=== PATIENT | female | born 1950 | race Caucasian/White ===

== ENCOUNTER 2018-03-18 09:04 | Outpatient (CLI) | payer BC, SELFPAY ==
[2018-03-18 13:10] LABS: Absolute Basophil Count 0.06 k/cumm (0.0-0.2); Absolute Eosinophil Count 0.25 k/cumm (0.0-0.7); Absolute Lymphocyte Count 1.05 k/cumm (1.2-3.4); Absolute Monocyte Count 0.43 k/cumm (0.11-0.7); Absolute Neutrophil Count 3.64 k/cumm (1.2-6.7); Basophils % 1.1; Eosinophils % 4.6; HCT 40.1 % (36.0-46.0); HGB 13.5 g/dL (12.0-15.5); Lymphocytes % 19.3; Mean Corp. HGB Concentration 33.7 g/dL (32.0-36.0); Mean Corpuscular Hemoglobin 31.2 pg (27.0-33.0); Mean Corpuscular Volume 92.6 fL (80-95); Mean Platelet Volume 12.4 fL (8.0-11.0); Monocytes % 7.9; Neutrophils % 67.1; Platelet Count 220 x1000/uL (130-400); RBC 4.33 m/cumm (4.00-5.20); White Blood Cell Count 5.43 k/cumm (4.4-10.8)
[2018-03-18 14:02] LABS: ALT 26 U/L (12-78); AST 25 U/L (15-37); Albumin 3.8 g/dL (3.4-5.0); Alkaline Phosphatase 84 U/L (46-116); Anion Gap 11.4 mmol/L (3-11); BUN 24 mg/dL (7-18); Bilirubin, Total 0.4 mg/dL (0.2-1.0); CO2 21.6 mmol/L (21.0-32.0); CREATININE 1.29 mg/dL (0.55-1.02); Calcium 9.1 mg/dL (8.5-10.1); Chloride 106 mmol/L (98-107); Estimated GFR 41.48 (mL/min/1.73m2); Glucose 105 mg/dL (70-100); Magnesium 1.5 mg/dL (1.8-2.4); Potassium 4.5 mmol/L (3.5-5.1); Sodium 139 mmol/L (136-145); Vitamin B12 471 pg/mL (193-986)
== END 2018-03-18 09:24 ==
PROVIDERS: PCP Family Medicine; Visit Provider Family Medicine
DX: K50.90 Crohn's disease, unspecified, without complications (principal)
CPT/HCPCS: 36415; 80053; 82607; 83735; 85025

== ENCOUNTER 2018-09-30 10:20 | Outpatient (REF) | payer OTHER, SELFPAY ==
--- NOTE | 2018-09-30 10:00 | PAPFT_PTH ---
PATIENT: Gloria Coburn LOC: [facility] U#:[id number] AGE/SX: 67/F ROOM: RE09/30/[address]: LATRICE Abad : 1950 BED: DIS: 09/30/2018 SPEC #: [id number] RECD: 09/30/18 12:25 STATUS: SOMMER RETrevin #: [id number] GUNNER: 09/30/18 10:[address]: Atiya Frederick DEPT: [facility] Cytology RECD BY: Sharon Galicia ENTERED: 09/30/18 12:25 SP TYPE: PAPFT BRENNEN DR: Hetal Colby MD Tissues: 1 - CX/ENDOCX FOR PAP SMEARS Procedures: PAP THIN PREP/[facility] Screening HPV DNA PROBE Comments: [id number]
== END 2018-09-30 10:40 ==
LOC: LBN 10:20
PROVIDERS: PCP Family Medicine; Visit Provider Nurse Practitioner Family
DX: Z12.4 Encounter for screening for malignant neoplasm of cervix (principal); Z11.51 Encounter for screening for human papillomavirus (HPV)
CPT/HCPCS: 88142; 87624

== ENCOUNTER 2018-10-09 00:46 | Outpatient (CLI) | payer OTHER, SELFPAY ==
--- NOTE | 2018-10-09 17:30 | DI.MAMMO_ITS ---
SYMPTOM/DIAGNOSIS: SCREENING, Z12.31 MAMMOGRAMS: Mammograms were interpreted according to the usual protocol including computer analysis with CAD system, tomosynthesis and C view imaging. The breast tissue is of moderate radiodensity. There is no dominant mass or suspicious microcalcifications. There has been no significant interval change when compared with previous images. SUMMARY: No evidence of malignancy. Category 1. Yearly screening mammography is recommended. Breast density, Category B. SA ASSESSMENT OF FINDINGS: Negative. Category 1. Patient will receive a letter notifying them of these results. BI-RADS category B. There are scattered areas of fibroglandular density.
== END 2018-10-09 01:06 ==
PROVIDERS: PCP Family Medicine; Visit Provider Nurse Practitioner Family
DX: Z12.31 Encounter for screening mammogram for malignant neoplasm of breast (principal)
CPT/HCPCS: 77063; 77067

== ENCOUNTER 2020-01-12 02:13 | Outpatient (CLI) | payer OTHER, SELFPAY ==
--- NOTE | 2020-01-12 16:00 | DI.MAMMO_ITS ---
EXAM: MG MAMMO SCREENING CLINICAL HISTORY: screening TECHNIQUE: Bilateral full field digital CC and MLO mammographic images were obtained with 3D tomosyn thesis and utilizing computer aided detection (CAD). COMPARISON: Available for comparison. FINDINGS: Masses/Architectural Distortion: None seen. Microcalcifications: No suspicious pleomorphic-type are seen. Skin Thickening/Nipple Retraction: None. IMPRESSION: 1. No significant interval change with no specific features of malignancy noted. 2. Unless there is more urgent need, screening mammography is recommended, as per [employer] guidelines. BI-RADS Category 1 - Negative Breast Density - Category B - Scattered areas of fibroglandular density A negative radiographic report should not delay biopsy if a dominant or clinically suspicious mass is present. Up to ten percent of cancers are not identified on mammography. A negative report may reinforce clinical impression. Adenosis and dense breasts may obscure an underlying neoplasm. False positive reports average 6 to 10%. Patient will receive a letter notifying them of these results.
== END 2020-01-12 02:33 ==
PROVIDERS: PCP Family Medicine; Visit Provider Nurse Practitioner Family
DX: Z12.31 Encounter for screening mammogram for malignant neoplasm of breast (principal); R92.2 Inconclusive mammogram
CPT/HCPCS: 77063; 77067

== ENCOUNTER 2020-05-06 01:51 | Outpatient (CLI) | payer OTHER, SELFPAY ==
[2020-05-06 14:09] LABS: Anion Gap 8.2 mmol/L (3-11); BUN 20 mg/dL (7-18); CO2 24.8 mmol/L (21.0-32.0); CREATININE 1.32 mg/dL (0.55-1.02); Chloride 104 mmol/L (98-107); Estimated GFR 40.14 (mL/min/1.73m2); Glucose 88 mg/dL (74-106); Magnesium 1.8 mg/dL (1.8-2.4); Potassium 4.1 mmol/L (3.5-5.1); Sodium 137 mmol/L (136-145); Vitamin B12 988 pg/mL (193-986)
== END 2020-05-06 02:11 ==
PROVIDERS: PCP Family Medicine; Visit Provider Family Medicine
DX: N18.9 Chronic kidney disease, unspecified (principal); E83.42 Hypomagnesemia; E53.8 Deficiency of other specified B group vitamins; M81.0 Age-related osteoporosis without current pathological fracture
CPT/HCPCS: 36415; 80048; 82306; 82607; 83735

== ENCOUNTER 2021-01-14 04:09 | Outpatient (CLI) | payer OTHER, SELFPAY ==
--- NOTE | 2021-01-14 15:47 | DI.MAMMO_ITS ---
Exam(s) MAMMO SCREENING EXAM: MAMMO SCREENING CLINICAL HISTORY: screening TECHNIQUE: Mammograms were interpreted according to the usual protocol including computer analysis w [employer] CAD system, tomosynthesis and C-view imaging. COMPARISON: 2010 through 2019 FINDINGS: The breasts are composed of scattered fibroglandular densities, Breast Density category B. No suspicious masses or suspicious microcalcifications are seen. No skin thickening or abnormal axillary lymph nodes are seen. There has been no significant change from prior exams. IMPRESSION: BI-RADS Category 1, Negative mammogram Yearly screening mammography is recommended. Breast Density - Category B, scattered fibroglandular densities. A negative radiographic report should not delay biopsy if a dominant or clinically suspicious mass is present. Up to ten percent of cancers are not identified on mammography. A negative report may reinforce clinical impression. Adenosis and dense breasts may obscure an underlying neoplasm. False positive reports average 6 to 10%. Patient will receive a letter notifying them of these results.
== END 2021-01-14 04:29 ==
PROVIDERS: PCP Family Medicine; Visit Provider Nurse Practitioner Family
DX: Z12.31 Encounter for screening mammogram for malignant neoplasm of breast (principal)
CPT/HCPCS: 77063; 77067

== ENCOUNTER 2021-08-08 12:06 | Outpatient (CLI) | payer MEDICARE, SELFPAY ==
--- NOTE | 2021-08-08 12:15 | RT.EKG_ITS ---
APPROVED REPORT Exam: Resting ECG Reason for Exam: Medicare [place] exam Patient Location: O HR:65 bpm ECG Measurements Heart Rate 65 AXIS RI 143 P 59 QRSd 80 QRS 36 QT 411 T 57 QTc 427 Conclusion Sinus rhythm...normal P axis, V-rate 60- 99
== END 2021-08-08 12:07 | disposition home or self-care (01) ==
PROVIDERS: PCP Family Medicine; Visit Provider Family Medicine
DX: D51.0 Vitamin B12 deficiency anemia due to intrinsic factor deficiency (principal); E55.9 Vitamin D deficiency, unspecified; N18.31 Chronic kidney disease, stage 3a; Z00.00 Encounter for general adult medical examination without abnormal findings; Z11.59 Encounter for screening for other viral diseases
CPT/HCPCS: 93010

== ENCOUNTER 2021-09-20 01:59 | Outpatient (CLI) | payer MEDICARE, SELFPAY ==
[2021-09-20 07:58] LABS: HCT 41.8 % (36.0-46.0); HGB 13.3 g/dL (11.2-15.7); MCH 30.4 pg (27.0-33.0); MCHC 31.8 % (32.0-36.0); MCV 96 fL (80-95); MPV 10.7 fL (8.0-11.0); Platelet Count 271 10^3/uL (130-400); RBC 4.37 10^6/uL (3.93-5.22); RDW 12.4 % (11.7-14.6); RDW-SD 43.8 fL; WBC 6.25 10^3/uL (4.4-10.8)
[2021-09-20 10:09] LABS: ALT 35 U/L (14-59); AST 23 U/L (15-37); Albumin 3.7 g/dL (3.4-5.0); Alkaline Phosphatase 78 U/L (46-116); Anion Gap 11.6 mmol/L (3-11); BUN 23 mg/dL (7-18); Bilirubin, Total 0.5 mg/dL (0.2-1.0); CO2 23.4 mmol/L (21.0-32.0); CREATININE 1.4 mg/dL (0.55-1.02); Calcium 9.4 mg/dL (8.5-10.1); Calculated LDL 89 mg/dL (<100); Chloride 107 mmol/L (98-107); Cholesterol 175 mg/dL (<200); Estimated GFR 37.39 (mL/min/1.73m2); Glucose 106 mg/dL (74-106); HDL Cholesterol 50 mg/dL (40-60); Potassium 4.3 mmol/L (3.5-5.1); Sodium 142 mmol/L (136-145); TSH (W/Ref FT4) 8.24 uIU/mL (0.36-3.74); Total Protein 7.1 g/dL (6.4-8.2); Triglyceride 181 mg/dL (<150); Vitamin B12 950 pg/mL (193-986)
[2021-09-20 10:30] LABS: FREE T4 0.84 ng/dL (0.76-1.46)
[2021-09-21 11:04] LABS: Hepatitis C Ab w Rflx HCV PCR Negative (Negative)
[2021-09-21 11:25] LABS: HIV-1/2 Ag & Ab Screen Negative (Negative)
[2021-09-22 05:17] LABS: Vitamin D 25 Total 31.4 ng/mL (30-100)
== END 2021-09-20 02:00 | disposition home or self-care (01) ==
LOC: LBO 01:59
PROVIDERS: PCP Nurse Practitioner Family; Visit Provider Family Medicine
DX: D51.0 Vitamin B12 deficiency anemia due to intrinsic factor deficiency (principal); E55.9 Vitamin D deficiency, unspecified; N18.31 Chronic kidney disease, stage 3a; Z11.59 Encounter for screening for other viral diseases; I10 Essential (primary) hypertension; R79.89 Other specified abnormal findings of blood chemistry; Z11.4 Encounter for screening for human immunodeficiency virus [HIV]
CPT/HCPCS: 36415; 80053; 80061; 82306; 85027; 86803; 87389; 82607; 84439; 84443

== ENCOUNTER 2021-10-08 05:27 | Outpatient (CLI) | payer MEDICARE, SELFPAY | END 2021-10-08 05:28 | disposition home or self-care (01) | LOC: DI.CM 05:28 | PROVIDERS: PCP Nurse Practitioner Family; Visit Provider Family Medicine ==

== ENCOUNTER 2021-11-29 02:09 | Outpatient (CLI) | payer MEDICARE, SELFPAY ==
[2021-11-29 08:56] LABS: Anion Gap 10.5 mmol/L (3-11); BUN 21 mg/dL (7-18); CO2 22.5 mmol/L (21.0-32.0); CREATININE 1.4 mg/dL (0.55-1.02); Calcium 9.3 mg/dL (8.5-10.1); Chloride 108 mmol/L (98-107); Estimated GFR 37.28 (mL/min/1.73m2); Glucose 99 mg/dL (74-106); Sodium 141 mmol/L (136-145); TSH 3.51 uIU/mL (0.36-3.74)
[2021-11-30 11:05] LABS: Hepatitis C Ab w Rflx HCV PCR Negative (Negative)
[2021-12-01 05:20] LABS: Vitamin D 25 Total 23.2 ng/mL (30-100)
== END 2021-11-29 02:10 | disposition home or self-care (01) ==
LOC: LBO 02:09
PROVIDERS: Nurse Practitioner; PCP Nurse Practitioner Family; Visit Provider Family Medicine
DX: M81.0 Age-related osteoporosis without current pathological fracture (principal)
CPT/HCPCS: 36415; 80048; 82306; 86803; 84439; 84443

== ENCOUNTER → 2022-02-07 01:52 | Outpatient (CLI) | payer MEDICARE, SELFPAY ==
--- NOTE | 2022-02-07 12:15 | DI.MAMMO_ITS ---
Exam(s) MAMMO SCREENING EXAM: MAMMO SCREENING CLINICAL HISTORY: screening TECHNIQUE: Bilateral full field digital CC and MLO mammographic images were obtained with 3D tomosyn thesis and utilizing computer aided detection (CAD). COMPARISON: Available for comparison. FINDINGS: Masses/Architectural Distortion: None seen. Microcalcifications: No suspicious pleomorphic-type are seen. Skin Thickening/Nipple Retraction: None. IMPRESSION: 1. No significant interval change with no specific features of malignancy noted. 2. Unless there is more urgent need, screening mammography is recommended, as per [employer] guidelines. BI-RADS Category 1 - Negative Breast Density - Category B - Scattered areas of fibroglandular density Breast density category C or D implies that the patient has dense breast tissue. Dense breast tissue is very common and is not abnormal but dense breast tissue can make it harder to find cancer on a ma mmogram. Also, dense breast tissue may increase their breast cancer risk. This information about the result of the mammogram report was provided to the patient to raise their awareness. Use this report when you speak with the patient about their risks for breast cancer, which includes their family hist ory. At that time, you may recommend for more screening tests (Ultrasound or MRI) as they might be us eful based on their risk. A negative radiographic report should not delay biopsy if a dominant or clinically suspicious mass is present. Up to ten percent of cancers are not identified on mammography. A negative report may reinforce clinical impression. Adenosis and dense breasts may obscure an underlying neoplasm. False positive reports average 6 to 10%. Patient will receive a letter notifying them of these results.
== END ==
PROVIDERS: PCP Nurse Practitioner Family; Visit Provider Nurse Practitioner Women's Health
DX: Z12.31 Encounter for screening mammogram for malignant neoplasm of breast (principal)
CPT/HCPCS: 77063; 77067

== ENCOUNTER → 2022-02-21 02:18 | Outpatient (CLI) | payer MEDICARE, SELFPAY ==
--- NOTE | 2022-02-21 06:30 | DI.US_ITS ---
Exam(s) US PELVIS TRANSVAGINAL EXAM: US PELVIS TRANSVAGINAL CLINICAL HISTORY: Postmenopausal bleeding,n95.0. TECHNIQUE: Transabdominal and transvaginal pelvic ultrasound was performed using standard protocol. COMPARISON: US RENAL ULTRASOUND(P) {[id number]} from 09/09/2015 FINDINGS: UTERUS: Position: Retroverted. Size: 5.6 long by 2.7 AP by 2.7 transverse cm Endometrium: Up to 1.1 cm. The endometrial stripe is heterogeneous and thickened. There is fluid see n within the endometrial canal and within the cervical canal. Myometrium: Unremarkable. Cervix: Fluid seen within the cervical canal. OVARIES: The ovaries were not seen transabdominally or transvaginally. No adnexal mass is seen sonog raphically. CUL-DE-SAC: Free fluid: None. Other: None. IMPRESSION: 1. Heterogeneous thickened endometrial stripe up to 1.1 cm. Differential considerations include endo metrial hyperplasia or neoplasm. Gynecologic consult is recommended. 2. Fluid seen within the endometrial canal and cervical canal. 3. The ovaries were not visualized transabdominally or transvaginally. No adnexal mass is seen sonog raphically. DATA REPOSITORY:
== END ==
PROVIDERS: PCP Nurse Practitioner Family; Visit Provider Nurse Practitioner Women's Health
DX: N95.0 Postmenopausal bleeding (principal); R93.89 Abnormal findings on diagnostic imaging of other specified body structures
CPT/HCPCS: 76830; 76856

== ENCOUNTER 2022-02-21 02:50 | Outpatient (CLI) | payer MEDICARE, SELFPAY ==
[2022-02-21 09:03] LABS: Anion Gap 10.4 mmol/L (3-11); BUN 25 mg/dL (7-18); CO2 21.6 mmol/L (21.0-32.0); CREATININE 1.2 mg/dL (0.55-1.02); Calcium 9.2 mg/dL (8.5-10.1); Chloride 102 mmol/L (98-107); Glucose 103 mg/dL (74-106); Magnesium 1.6 mg/dL (1.8-2.4); Sodium 134 mmol/L (136-145)
[2022-02-21 09:20] LABS: PHOSPHORUS 2.8 mg/dL (2.6-4.7)
[2022-02-23 05:54] LABS: Vitamin D 25 Total 36.1 ng/mL (30-100)
== END 2022-02-21 02:51 | disposition home or self-care (01) ==
LOC: LBO 02:50
PROVIDERS: PCP Nurse Practitioner Family; Visit Provider Nurse Practitioner
DX: E55.9 Vitamin D deficiency, unspecified (principal); M81.0 Age-related osteoporosis without current pathological fracture; N28.9 Disorder of kidney and ureter, unspecified
CPT/HCPCS: 36415; 80048; 82306; 83735; 84100

== ENCOUNTER 2022-02-23 15:26 | Outpatient (REF) | payer MEDICARE, SELFPAY ==
--- NOTE | 2022-02-23 14:20 | ENDOMET_PTH ---
PATIENT: Gloria Coburn LOC: [facility] U#:[id number] AGE/SX: 71/F ROOM: RE02/23/[address]: Chey Edwards MD : 1950 BED: DIS: 02/23/2022 SPEC #: [id number] RECD: 02/23/22 17:33 STATUS: SOMMER REQ #: [id number] GUNNER: 02/23/22 14:[address]: Chey Edwards DEPT: Surgical Specimen RECD BY: Jesi Hamilton ENTERED: 02/23/22 17:34 SP TYPE: Endomet OTHR DR: Perry Montague, YOLIS Tissues: 1 - ENDOMETRIUM BX/TIERA Procedures: GROSS AND MICRO LEVEL 4 Comments: [id number]
== END 2022-02-23 15:27 | disposition home or self-care (01) ==
LOC: LBN 15:26
PROVIDERS: PCP Nurse Practitioner Family; Visit Provider Obstetrics & Gynecology
DX: N84.0 Polyp of corpus uteri (principal)
CPT/HCPCS: 88305

== ENCOUNTER 2022-10-17 14:15 | Outpatient (CLI) | payer MEDICARE, SELFPAY ==
--- NOTE | 2022-10-17 13:15 | DI.RAD_ITS ---
Exam(s) XR ABDOMEN FLAT UPRIGHT EXAM: 2D digital imaging was performed. CLINICAL HISTORY: hx sbo, now ? obstruction, ileostomy in place, Z93.2, K56.889. COMPARISON: CR ABD FLAT UPRIGHT PA CHEST from 06/02/2015 TECHNIQUE: Supine and upright views of the abdomen was performed. Three images were obtained. FINDINGS: LUNG BASES: Clear. BOWEL GAS PATTERN: Nondistended. FREE AIR: None. CALCIFICATIONS: No radiopaque calcifications. OSSEOUS STRUCTURES: Normal for age. OTHER FINDINGS: There are surgical clips in the right upper quadrant in the right pelvis again seen. IMPRESSION: No evidence of an acute abdomen. DATA REPOSITORY: RADIATION DOSE DELIVERED:
== END 2022-10-17 14:35 ==
LOC: DI 14:15
PROVIDERS: PCP Nurse Practitioner Family; Visit Provider Family Medicine
DX: K56.609 Unspecified intestinal obstruction, unspecified as to partial versus complete obstruction (principal); Z93.2 Ileostomy status
CPT/HCPCS: 74019

== ENCOUNTER 2022-10-17 21:49 | Inpatient (IN) | payer MEDICARE, SELFPAY ==
[2022-10-17 21:51] VITALS: BP 137/55; PULSE 71; RESP 19; TEMP 37; O2SAT 98
--- NOTE | 2022-10-17 22:00 | DI.CT_ITS ---
Exam(s) CT ABDOMEN PELVIS W EXAM: CT ABDOMEN PELVIS W CLINICAL HISTORY: pain/ eval sbo TECHNIQUE: Imaging Protocol: Axial computed tomography images with coronal and sagittal reformatted images were created and reviewed CONTRAST MATERIAL: Intravenous: Omnipaque 350 Contrast volume:100 mL Oral: No COMPARISON: CT RENAL COLIC WO CONTRAST from 06/19/2014 FINDINGS: ABDOMEN: Lung Bases: Mild dependent atelectasis. There is a 4 mm nodule in the periphery of the left lower lo be. Liver: Normal density. No measurable mass. Portal, Superior Mesenteric, and Splenic Veins: Unremarkable. Gallbladder and Biliary Tract: Status post cholecystectomy. No significant biliary ductal dilatation . Pancreas: Normal density, no abnormal calcifications or inflammatory process. Spleen: Normal. Adrenals: No masses seen. Kidneys: Normal size, contour and axis. No radiodense stones or obstructive uropathy. There are simpl e cysts seen in the kidneys bilaterally. No follow-up is recommended. Abdominal Aorta: Abdominal portion non-dilated. Atherosclerosis is present. Bowel: There has been a prior colectomy with a right lower quadrant ostomy in place. There are mildl y dilated air and fluid-filled loops of small bowel with a transition seen in the upper pelvis. At t he point of transition, there is fecalization of the small bowel contents. Peritoneal Cavity: No ascites, collection or mesenteric inflammatory response. No free air. Lymph Nodes: Within normal limits. Bones: Within normal limits for the patient's age. Soft Tissues: Unremarkable. PELVIS: Bladder: Symmetric distention, no gross wall thickening. Reproductive Organs: Unremarkable as visualized. Lymph Nodes: Within normal limits. Bones: Within normal limits for the patient's age. IMPRESSION: 1. Mildly dilated loops of small bowel with a transition in the upper pelvis. There is fecalization of the small bowel contents at the transition point. Findings are is suggestive of a small-bowel obs truction. 2. 4 mm nodule in the lateral aspect of the left lower lobe. In the patient's of low risk, optional CT scan in 12 months may be obtained. In high risk patients, (history of smoking or other risk facto rs), a scan in 12 months should be obtained. Unexpected findings RADIATION DOSE DELIVERED: 770.79mGy.cm Total DLP DATA REPOSITORY: All CT scans at this facility are submitted to the National Radiology Data Registry (NRDR) Dose Index Registry (DIR) with the [employer] (ACR). RADIATION OPTIMIZATION: All CT scans at this facility use at least one of these dose optimization te chniques: automated exposure control; mA and/or kV adjustment per patient size (includes targeted exa ms where dose is matched to clinical indication); or iterative reconstruction.
--- NOTE | 2022-10-17 22:06 | W.ED.GENAD ---
Discharge Plan Disposition Patient Disposition: Admit to [facility] Condition: Stable Discharge Details Clinical Impression: SBO (small bowel obstruction) Admit Date/Time: 10/18/22 00:43 Admit Provider: Dante Ybarra Attending Provider: Dante Ybarra Primary Care Provider: Perry Montague ED Provider: Philip Berry Discharge Data Discharge Date/Time-TO BE ENTERED AT DEPARTURE: 10/18/22 01:29 Medical Decision Making 72 year old female with prior ileostomy secondary to Crohn's, found to have SBO. vomiting last night, none today so deferred NGT. Pt says she has had this before, resolved without intervention. Spoke to surgery, will admit, IVF and NPO, eval in am. HPI General Date/Time Provider Initiated Documentation: 10/17/22 21:57. HPI Narrative: 72 year old female presents to the ED with c/o decreased output from her ileostomy and some abd pain that started last night. She says that the pain was pretty severe initially, mostly epigastric, with some nausea and couple bouts of vomiting. Today, her pain is less, and nausea has been coming and going, but ok currently, but still decreased out-put. She has had some decreased po today as well. She called her doctor, ordered her xrays and says they were read as normal. Related Data Home Medications Medication Instructions Recorded Confirmed omeprazole 20 mg tablet,delayed 20 mg PO DAILY PRN #30 tab-caps 09/17/17 10/17/22 release acetaminophen 500 mg capsule 500 - 1,000 mg PO Q6H PRN 03/18/18 10/17/22 biotin 1 mg capsule 1 mg PO DAILY 03/18/18 10/17/22 cholecalciferol (vitamin D3) 25 1,000 unit PO DAILY 02/25/19 10/17/22 mcg (1,000 unit) capsule cyanocobalamin (vitamin B-12) 1,000 mcg PO DAILY #90 tabs 07/22/19 10/17/22 1,000 mcg tablet hydroxychloroquine 200 mg tablet 200 mg PO DAILY 07/22/19 10/17/22 magnesium oxide 400 mg (241.3 mg 400 mg PO DAILY #90 tab-caps 11/21/19 10/17/22 magnesium) tablet levothyroxine 50 mcg tablet 50 mcg PO DAILY #90 tabs 10/16/22 10/17/22 Previous Rx's Medication Instructions Recorded cyanocobalamin (vitamin B-12) 1,000 mcg PO DAILY #90 tabs 07/22/19 1,000 mcg tablet levothyroxine 50 mcg tablet 50 mcg PO DAILY #90 tabs 10/16/22 Allergies Allergy/AdvReac Type Severity Reaction Status Date / Time prochlorperazine edisylate Allergy Severe Anaphylaxsi Verified 10/17/22 22:06 [From Compazine] s Sulfa (Sulfonamide Allergy Intermediate Ankle Verified 10/17/22 22:06 Antibiotics) Swelling General Stated Complaint: Abd Prob VIVI: 3 Review of Systems Narrative: CONST: no fever or chills HEENT: no sore throat SKIN: no rashes PULM: no sob, no cough CARD: no cp, no palpitations ABD: +abd pain EXTR: no swelling NEURO: No focal weakness PFSH All Active Problems (Updated 10/18/22 @ 00:39 by Philip Berry MD) SBO (small bowel obstruction) (Acute) Postmenopausal Bleeding (Acute) Osteoporosis (Chronic) 09/2021-DEXA scan with [facility], 1 out of 3 sites positive at spine, followed by rheumatology [facility]?-treated with Reclast Hypothyroid (Chronic) 09/2021, Vitamin D deficiency (Acute) Chronic kidney disease, stage 3a (Acute) Urology [facility] Sensorineural hearing loss, bilateral (Acute) Cervical intraepithelial neoplasia grade III with severe dysplasia (Acute 05/14/80) Proteinuria (Acute 09/07/15) Polyarthralgia (Acute) [place] [facility] [place]; inflammatory osteoarthritis/Hydrochloroquine started /eye exam yearly/ do Dexa scan Pernicious anemia (Chronic) Microscopic hematuria (Acute 02/11/14) Abnormal urinary cytology 01-25/ Dysphagia (Acute 11/26/13) gastroscopy 11-01-2103 : eosinophilic esophagitis or severe reflux esophagitis/small stricture in distal oesophagus Dr Briseno 2016: peptic duodenitis 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) GERD (gastroesophageal reflux disease) (Chronic) Crohns disease (Chronic) Medical History (Updated 10/18/22 @ 00:39 by Philip Berry MD) Anemia Dx 2012 Cervical intraepithelial neoplasia grade III with severe dysplasia 1980 Crohn's disease 1980 Kidney stone ?2004 passed Proctitis Small bowel obstruction 2009, 2010 Surgical History (Updated 08/08/21 @ 11:47 by Anthony Ramirez MD) Biopsy, Cold knife [facility] 1980 Cholecystectomy 1980 Colectomy complete colectomy Ileostomy 1980 Family History Mother , age 86 Diabetes Essential hypertension Heart disease Hyperlipidemia Stroke Colon cancer Father , age 91 Stroke Skin cancer Brother , age 26 Depression Alcohol abuse Substance abuse Maternal Grandfather No problems noted. Paternal Grandfather Stroke Maternal Grandmother No problems noted. Paternal Grandmother Stroke Brother Diabetes PRE Brother Hyperlipidemia Hypertension Brother Essential hypertension Heart disease Hyperlipidemia Son No problems noted. Daughter No problems noted. Social History (Updated 09/12/22 @ 17:31 by Sophie Moore) Smoking/Tobacco Use Status: Never Second Hand Exposure: No Smoking risk assessment performed?: Yes Alcohol Intake: current Alcohol Intake frequency: a few times a month Alcohol type: wine and hard liquor Drug use: Never Substance use type: does not use Caregiver/Support person: No Household members: spouse Housing: house Communication Needs: None Do you need help understanding health information?: Never Pets and animals: Yes Pets and animals: cat(s) Sexually active: Yes Do you think of yourself as: straight/heterosexual Current gender identity: female What is your relationship status?: How often do you talk on the phone with friends or family?: three or more times per week How often do you get together with friends or relatives?: once per week How often do you attend mosque or islam services?: decline to answer Do you belong to any clubs or organized social groups?: yes Panel score (0-1 are the most socially isolated patients): 3 What type of physical activity do you participate in: walking and bicycling Duration: 15-30 minutes/day Frequency: 3-4 times per week Karol/Roman Catholic: Latter-Day Special karol needs: No Seatbelt use: always Helmet use: Yes Helmet use: sometimes Drive intox or ride w/intox tow bar driver: No Do you feel safe at home: Yes Do you feel safe in your relationship?: Yes Female Reproductive History Menstrual Menopause type: natural History History 0 Para Hx # Term Pregnancies Multiple births Hx # Pregnancies Ectopic pregnancies AB induced Hx Number of Living Children AB spontaneous Exam Narrative Exam Narrative: Const: well appearing, no acute distress HEENT: normocephalic, atraumatic; MMM Lungs: CTA, no wheezing or rales Heart: RRR Abd: soft, ileostomy in lower abd, small amount yellow brown material. +BS, mild diffuse lower abd tenderness, no rebound or guarding. Ext: well perfused Neuro: non-focal Skin: no rashes Course Reevaluation(s) Initial Evaluation: 11:00pm, pt resting comfortably, no acute issues on labs. Will continue to monitor, waiting for Rad read of CT. Reevaluation: 36 - spoke to surgery, discussed all pertinent aspects of case, will accept on service for further eval and tx, NPO, IVF, will eval in am. Updated pt. Consultations Consultation #1: surgery. Vital Signs Vital signs: Vital Signs Temperature 37.0 C 10/17/22 21:51 Pulse 71 10/17/22 21:51 Respiratory Rate 19 10/17/22 21:51 Blood Pressure 137/55 L 10/17/22 21:51 Pulse Oximetry 98 10/17/22 21:51 Temperature 37.0 C 10/17/22 21:51 Temperature Source Temporal Artery Scan 10/17/22 21:51 Pulse 71 10/17/22 21:51 Respiratory Rate 19 10/17/22 21:51 Respiratory Effort Normal 10/17/22 21:55 Blood Pressure 137/55 L 10/17/22 21:51 Blood Pressure Position Sitting 10/17/22 21:51 Pulse Oximetry 98 10/17/22 21:51 Oxygen Delivery Method Room Air 10/17/22 21:51 Oxygen Flow Rate 0 10/17/22 21:51 Pain Level 0 10/17/22 21:51
[2022-10-17 22:18] LABS: Lactate 1.3 mmol/L (0.6-1.4)
[2022-10-17 22:20] LABS: HCT 42.3 % (36.0-46.0); HGB 14.1 g/dL (11.2-15.7); MCH 30.9 pg (27.0-33.0); MCHC 33.3 % (32.0-36.0); MCV 93 fL (80-95); MPV 10.6 fL (8.0-11.0); Platelet Count 247 10^3/uL (130-400); RBC 4.57 10^6/uL (3.93-5.22); WBC 10.04 10^3/uL (4.4-10.8)
[2022-10-17] MEDS: Normal Saline 1,000 ML 1000 ML IV (22:22)
[2022-10-17 22:36] LABS: ALT 26 U/L (14-59); AST 24 U/L (15-37); Albumin 3.8 g/dL (3.4-5.0); Alkaline Phosphatase 72 U/L (46-116); Anion Gap 9.4 mmol/L (3-11); BUN 17 mg/dL (7-18); Bilirubin, Total 0.9 mg/dL (0.2-1.0); CO2 27.6 mmol/L (21.0-32.0); CREATININE 1.4 mg/dL (0.55-1.02); Calcium 9.9 mg/dL (8.5-10.1); Chloride 102 mmol/L (98-107); Estimated GFR 40.47 (mL/min/1.73m2); Glucose 116 mg/dL (74-106); Lipase 36 U/L (16-77); Potassium 3.5 mmol/L (3.5-5.1); Sodium 139 mmol/L (136-145); Total Protein 7.6 g/dL (6.4-8.2)
[2022-10-17] MEDS: Omnipaque 350 MG/ML 100 ML BTL IJ (22:42)
[2022-10-17] MEDS: Normal Saline - Diluent 50 ML VIAL IJ (22:42)
[2022-10-17] MEDS: Normal Saline Flush 10 ML SYR IVP (22:43)
--- NOTE | 2022-10-17 23:49 | DI.VRAD_ITS ---
PROCEDURE INFORMATION: Exam: CT Abdomen And Pelvis With Contrast Exam date and time: 10/17/2022 10:50 PM Age: 72 years old Clinical indication: Abdominal pain; Generalized; Prior surgery; Surgery date: 6+ months; Surgery type: Gallbladder removal, choleostomy TECHNIQUE: Imaging protocol: Computed tomography of the abdomen and pelvis with contrast. Contrast material: OMNIPAQUE 350; Contrast volume: 100 ml; Contrast route: INTRAVENOUS (IV); COMPARISON: CR XR ABDOMEN FLAT UPRIGHT 10/17/2022 1:56 PM FINDINGS: Lungs: Minimal bibasilar atelectasis or scarring. Diaphragm: Small-sized hiatal hernia. Liver: Mild hepatomegaly. Gallbladder and bile ducts: Gallbladder surgically absent. Pancreas: Normal. Spleen: Normal. Adrenal glands: Normal. No mass. Kidneys and ureters: Bilateral simple renal cysts, for which no further evaluation necessary. Stomach and bowel: Few loops of mildly dilated, gas and fluid-filled mid and distal small bowel, with focal transition to normal caliber small bowel in the upper pelvis (series 4, image 60). Fecalization of small bowel contents proximal to the point of transition. Changes of prior colectomy, with right lower quadrant ileostomy. Appendix: No evidence of appendicitis. Intraperitoneal space: Minimally increased attenuation of the mesenteric root fat, likely incidental. Vasculature: Atherosclerotic disease of the abdominal aorta and iliac arteries. Phleboliths within the pelvis. Lymph nodes: Unremarkable. No enlarged lymph nodes. Urinary bladder: Unremarkable as visualized. Reproductive: Unremarkable as visualized. Bones/joints: No acute abnormality. Soft tissues: Normal. IMPRESSION: Few loops of mildly dilated, gas and fluid-filled mid and distal small bowel, with focal transition to normal caliber small bowel in the upper pelvis (series 4, image 60). Fecalization of small bowel contents proximal to the point of transition. Findings compatible with small bowel obstruction. Dictated and Authenticated by: Dante Chase MD. Ordering:MARE Palacios MD
[2022-10-18] MEDS: Ondansetron 4 MG/2 ML VIAL IVP ×3 (00:19→19:56)
--- NOTE | 2022-10-18 00:37 | SCONE_ITS ---
Date of service: 10/18/22 Time of Service: 00:45 Assessment and Plan Assessment and plan (1) SBO (small bowel obstruction): Status: Acute Assessment and plan: 72-year-old woman with a small bowel obstruction radiographically as well as clinically (no ostomy output with distention and nausea and vomiting). She is hemodynamically stable. Clinically, her symptoms seem to be resolving per her account. She is not having any more abdominal pain and does not have any nausea and has not vomited for many hours now. The only thing that remains concerning is that her ostomy still has not started having any output. I discussed with her the role for NG tube placement and I do recommend decompression. However, considering she is feeling better I did offer her the option of continued observation which is what she would like to do. She has never had an NG tube before. She does not want to have one placed now if she is getting better and she thinks that she has. We agreed that if she vomits or the pain starts back up, then an NG tube will need to be placed. I have instructed the nursing staff about this as needed order/plan. Lab work is grossly unremarkable. She has CKD stage III at baseline. Her creatinine at 1.4 today is her baseline creatinine. There is no clinical or laboratory evidence that she is dehydrated from her obstruction. She reports that she has been urinating adequately. Overall plan: #Patient #N.p.o. - gentle IV fluid #Serial abdominal exams #18 Gauge NG tube if the patient vomits or abdominal pain returns or if the ostomy does not start putting on the next 24-36 hours. #Gastrografin oral challenge #Repeat lab work in the morning History of Present Illness Narrative: The patient is a 72-year-old woman who presented to the ED after couple of days of no ostomy output and abdominal discomfort that is cramping as well as some nausea and vomiting. She has a history of total colectomy with end ileostomy done for Crohn's disease about 40-50 years ago. Her Crohn's disease has been in remission ever since. She is not on maintenance medications. She has had 1 episode of small bowel obstruction in the past and it was self?limited and went away after couple of days. She did not have an NG tube for this. She came to the emergency department after discussing her symptoms and scenario with relatives who are in the medical field. At the time she came to the e mergency department, her cramping abdominal discomfort had subsided. A CT scan was done which showed evidence of small bowel obstruction. Mid-? loops of bowel are fecalized with a transition point and bowel leading away from it is decompressed. These reasons the patient was admitted for observation. Admission, she had she denied nausea and had not vomited for many hours. These reasons no NG tube was placed. However, she still did not have any bowel function from her ostomy. [facility] All Active Problems (Updated 10/18/22 @ 00:39 by Philip Berry MD) SBO (small bowel obstruction) (Acute) Postmenopausal Bleeding (Acute) Osteoporosis (Chronic) 09/2021-[facility]A scan with [facility], 1 out of 3 sites positive at spine, followed by rheumatology [facility]?-treated with Reclast Hypothyroid (Chronic) 09/2021, Vitamin D deficiency (Acute) Chronic kidney disease, stage 3a (Acute) Urology [facility] Sensorineural hearing loss, bilateral (Acute) Cervical intraepithelial neoplasia grade III with severe dysplasia (Acute 05/14/80) Proteinuria (Acute 09/07/15) Polyarthralgia (Acute) 2017 [facility] Rheumatology; inflammatory osteoarthritis/Hydrochloroquine started /eye exam yearly/ do Dexa scan Pernicious anemia (Chronic) Microscopic hematuria (Acute 02/11/14) Abnormal urinary cytology 01-25/ Dysphagia (Acute 11/26/13) gastroscopy 11-01-2103 : eosinophilic esophagitis or severe reflux esophagitis/small stricture in distal oesophagus Dr Briseno 2016: peptic duodenitis 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) GERD (gastroesophageal reflux disease) (Chronic) Crohns disease (Chronic) Medical History (Updated 10/18/22 @ 00:39 by Philip Berry MD) Anemia Dx 2012 Cervical intraepithelial neoplasia grade III with severe dysplasia 1980 Crohn's disease 1980 Kidney stone ?2004 passed Proctitis Small bowel obstruction 2009, 2010 Surgical History (Updated 08/08/21 @ 11:47 by Anthony Ramirez MD) Biopsy, Cold knife Cone 1980 Cholecystectomy 1980 Colectomy complete colectomy Ileostomy 1980 Family History Mother , age 86 Diabetes Essential hypertension Heart disease Hyperlipidemia Stroke Colon cancer Father , age 91 Stroke Skin cancer Brother , age 26 Depression Alcohol abuse Substance abuse Maternal Grandfather No problems noted. Paternal Grandfather Stroke Maternal Grandmother No problems noted. Paternal Grandmother Stroke Brother Diabetes PRE Brother Hyperlipidemia Hypertension Brother Essential hypertension Heart disease Hyperlipidemia Son No problems noted. Daughter No problems noted. Social History (Updated 09/12/22 @ 17:31 by Sophie Moore) Smoking/Tobacco Use Status: Never Second Hand Exposure: No Smoking risk assessment performed?: Yes Alcohol Intake: current Alcohol Intake frequency: a few times a month Alcohol type: wine and hard liquor Drug use: Never Substance use type: does not use Caregiver/Support person: No Household members: spouse Housing: house Communication Needs: None Do you need help understanding health information?: Never Pets and animals: Yes Pets and animals: cat(s) Sexually active: Yes Do you think of yourself as: straight/heterosexual Current gender identity: female What is your relationship status?: How often do you talk on the phone with friends or family?: three or more times per week How often do you get together with friends or relatives?: once per week How often do you attend jewish or gnosticist services?: decline to answer Do you belong to any clubs or organized social groups?: yes Panel score (0-1 are the most socially isolated patients): 3 What type of physical activity do you participate in: walking and bicycling Duration: 15-30 minutes/day Frequency: 3-4 times per week Karol/Bahai: Scientologist Special karol needs: No Seatbelt use: always Helmet use: Yes Helmet use: sometimes Drive intox 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 There is no tenderness anywhere with examination. Ileostomy bag does not have any air in it and has only a scant amount of liquid output. Results Last Vital Signs Temp 98.6 F 10/17/22 21:51 Pulse 71 10/17/22 21:51 Resp 19 10/17/22 21:51 BP 137/55 L 10/17/22 21:51 Pulse Ox 98 10/17/22 21:51 Labs 10/17/22 22:15 10/17/22 22:15 Labs: Laboratory Results - last 24 hr 10/17/22 10/17/22 10/17/22 22:15 22:15 22:15 WBC 10.04 RBC 4.57 Hgb 14.1 Hct 42.3 MCV 93 MCH 30.9 MCHC 33.3 RDW 13.0 Plt Count 247 MPV 10.6 VBG Lactate 1.3 Sodium 139 Potassium 3.5 Chloride 102 Carbon Dioxide 27.6 Anion Gap 9.4 BUN 17 Creatinine 1.4 H Est GFR (CKD-EPI 2020) 40.47 Glucose 116 H Calcium 9.9 Total Bilirubin 0.9 AST 24 ALT 26 Alkaline Phosphatase 72 Total Protein 7.6 Albumin 3.8 Lipase 36
[2022-10-18] MEDS: Normal Saline 1,000 ML 1000 ML IV (00:49)
[2022-10-18 01:26] VITALS: BP 136/69; PULSE 73; RESP 16; TEMP 37; O2SAT 97
[2022-10-18 01:32] VITALS: BP 134/60; PULSE 78; RESP 16; O2SAT 98
[2022-10-18] MEDS: Lactated Ringers 1,000 ML 100 ML IV ×3 (01:57→21:52)
[2022-10-18] MEDS: Normal Saline Flush 10 ML SYR IVP ×2 (01:58→19:59)
[2022-10-18] MEDS: MORPHine 4 MG/ML SYR 3 MG IVP ×2 (02:08→19:57)
--- NOTE | 2022-10-18 07:04 | NUR.NOTE ---
Pt admitted to the unit @ 0120 via stretcher; pt is AAOX4, breathing even and unlabored and maintaining O2 sats within parameters on RA. HRR, VSS and reports pain 6/10 which later increased to 7/10 - prn meds administered with positive effects see MAR. Pt is independent in the room and is able to make needs known; personal items checked and at bedside, hourly rounding and safety maintained. Pt is currently resting ATT, appears comfortable, please see flowsheet for further details. Nursing Note:
[2022-10-18 07:18] VITALS: BP 116/63; PULSE 70; RESP 17; TEMP 37.1; O2SAT 95
--- NOTE | 2022-10-18 07:58 | W.PM.HP.N ---
Date of service: 10/18/22 Time of Service: 07:58 Assessment and Plan Assessment and plan (1) SBO (small bowel obstruction): Status: Acute Assessment and plan: See consult note A/P History of Present Illness Narrative: 72 y/o female with a history of GERD, polyarthralgia, hypothyroidism and chron's (s/p colectomy with ileostomy) presented to the ER with complaints of nausea and vomiting over Chaitanya night, presented with complaints of abdominal pain and decreased ilieostomy output. She was found to have a SBO on CT scan. She describes that she has experienced this in the past and they had previously resolved with bowel rest and pain control. She denies having any nausea or vomiting at this time. Denies having any fevers, chills or night sweats. PFSH All Active Problems (Updated 10/18/22 @ 00:39 by Philip Berry MD) SBO (small bowel obstruction) (Acute) Postmenopausal Bleeding (Acute) Osteoporosis (Chronic) 09/2021-[facility], 1 out of 3 sites positive at spine, followed by rheumatology [facility]?-treated with Reclast Hypothyroid (Chronic) 09/2021, Vitamin D deficiency (Acute) Chronic kidney disease, stage 3a (Acute) Urology [facility] Sensorineural hearing loss, bilateral (Acute) Cervical intraepithelial neoplasia grade III with severe dysplasia (Acute 05/14/80) Proteinuria (Acute 09/07/15) Polyarthralgia (Acute) [place] [facility]ology; inflammatory osteoarthritis/Hydrochloroquine started /eye exam yearly/ do Dexa scan Pernicious anemia (Chronic) Microscopic hematuria (Acute 02/11/14) Abnormal urinary cytology 01-25/ Dysphagia (Acute 11/26/13) gastroscopy 11-01-2103 : eosinophilic esophagitis or severe reflux esophagitis/small stricture in distal oesophagus Dr Briseno 2016: peptic duodenitis 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) GERD (gastroesophageal reflux disease) (Chronic) Crohns disease (Chronic) Medical History (Updated 10/18/22 @ 00:39 by Philip Berry MD) Anemia Dx 2013 Cervical intraepithelial neoplasia grade III with severe dysplasia 1980 Crohn's disease 1980 Kidney stone ?2004 passed Proctitis Small bowel obstruction 2009, 2010 Surgical History (Updated 08/08/21 @ 11:47 by Anthony Ramirez MD) Biopsy, Cold knife Cone 1980 Cholecystectomy 1980 Colectomy complete colectomy Ileostomy 1980 Family History Mother , age 86 Diabetes Essential hypertension Heart disease Hyperlipidemia Stroke Colon cancer Father , age 91 Stroke Skin cancer Brother , age 26 Depression Alcohol abuse Substance abuse Maternal Grandfather No problems noted. Paternal Grandfather Stroke Maternal Grandmother No problems noted. Paternal Grandmother Stroke Brother Diabetes PRE Brother Hyperlipidemia Hypertension Brother Essential hypertension Heart disease Hyperlipidemia Son No problems noted. Daughter No problems noted. Social History (Updated 09/12/22 @ 17:31 by Sophie Moore) Smoking/Tobacco Use Status: Never Second Hand Exposure: No Smoking risk assessment performed?: Yes Alcohol Intake: current Alcohol Intake frequency: a few times a month Alcohol type: wine and hard liquor Drug use: Never Substance use type: does not use Caregiver/Support person: No Household members: spouse Housing: house Communication Needs: None Do you need help understanding health information?: Never Pets and animals: Yes Pets and animals: cat(s) Sexually active: Yes Do you think of yourself as: straight/heterosexual Current gender identity: female What is your relationship status?: How often do you talk on the phone with friends or family?: three or more times per week How often do you get together with friends or relatives?: once per week How often do you attend tenriism or hoahaoism services?: decline to answer Do you belong to any clubs or organized social groups?: yes Panel score (0-1 are the most socially isolated patients): 3 What type of physical activity do you participate in: walking and bicycling Duration: 15-30 minutes/day Frequency: 3-4 times per week Karol/Restoration: Catholic Special karol needs: No Seatbelt use: always Helmet use: Yes Helmet use: sometimes Drive intox or ride w/intox 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: No Do you feel safe at home: Yes Do you feel safe in your relationship?: Yes Female Reproductive History Menstrual Menopause type: natural History History 0 Para Hx # Term Pregnancies Multiple births Hx # Pregnancies Ectopic pregnancies AB induced Hx Number of Living Children AB spontaneous Meds Allergies and Home Medications Allergies Allergy/AdvReac Type Severity Reaction Status Date / Time prochlorperazine edisylate Allergy Severe Anaphylaxsi Verified 10/17/22 22:06 [From Compazine] s Sulfa (Sulfonamide Allergy Intermediate Ankle Verified 10/17/22 22:06 Antibiotics) Swelling Home Medications Medication Instructions Recorded Confirmed Type omeprazole 20 mg tablet,delayed 20 mg PO DAILY PRN #30 tab-caps 09/17/17 10/17/22 History release acetaminophen 500 mg capsule 500 - 1,000 mg PO Q6H PRN 03/18/18 10/17/22 History biotin 1 mg capsule 1 mg PO DAILY 03/18/18 10/17/22 History cholecalciferol (vitamin D3) 25 1,000 unit PO DAILY 02/25/19 10/17/22 History mcg (1,000 unit) capsule cyanocobalamin (vitamin B-12) 1,000 mcg PO DAILY #90 tabs 07/22/19 10/17/22 Rx 1,000 mcg tablet hydroxychloroquine 200 mg tablet 200 mg PO DAILY 07/22/19 10/17/22 History magnesium oxide 400 mg (241.3 mg 400 mg PO DAILY #90 tab-caps 11/21/19 10/17/22 History magnesium) tablet levothyroxine 50 mcg tablet 50 mcg PO DAILY #90 tabs 10/16/22 10/17/22 Rx Exam Const General: cooperative, healthy appearing and comfortable Orientation: alert and oriented x3 Resp Effort & Inspection: normal respiratory effort, no audible wheezes and no cough GI Inspection: normal to inspection Palpation: soft, no guarding and tender Other: Ileostomy with air in the bag. Results Labs 10/17/22 22:15 10/17/22 22:15 Labs: Laboratory Results - last 24 hr 10/17/22 10/17/22 10/17/22 22:15 22:15 22:15 WBC 10.04 RBC 4.57 Hgb 14.1 Hct 42.3 MCV 93 MCH 30.9 MCHC 33.3 RDW 13.0 Plt Count 247 MPV 10.6 VBG Lactate 1.3 Sodium 139 Potassium 3.5 Chloride 102 Carbon Dioxide 27.6 Anion Gap 9.4 BUN 17 Creatinine 1.4 H Est GFR (CKD-EPI 2020) 40.47 Glucose 116 H Calcium 9.9 Total Bilirubin 0.9 AST 24 ALT 26 Alkaline Phosphatase 72 Total Protein 7.6 Albumin 3.8 Lipase 36 Last Vital Signs Temp 37.1 C 10/18/22 07:18 Pulse 70 10/18/22 07:18 Resp 17 10/18/22 07:18 BP 116/63 10/18/22 07:18 Pulse Ox 95 10/18/22 07:18 PAWSS Have you Been Recently Intoxicated or Drunk Within the Last 30 days?: No Have you Ever Experienced Previous Episodes of Alcohol Withdrawal?: No Have you ever Experienced Withdrawal Seizures?: No Have you ever Experienced Delirium Tremens(DT)s?: No Have you ever undergone Alcohol Rehabilitation Treatment (i.e, inpt ot outpatient treatment programs)?: No Have you ever Experienced Blackouts?: No Have you ever Combined Alcohol with other Downers within the last 90 days?: No Have you ever Combined Alcohol with any other Substance of Abuse during the last 90 days?: No Positive Blood Alcohol level on Presentation? [PCS.BAL]: No Evidence of Increased Autonomic Activity (i.e. HR>120, tremor, sweating, agitation, nausea)?: No Result: 0 Time Spent Time spent with Patient: <40 minutes Time was spent: ordering medications,tests, procedures and counseling the patient
--- NOTE | 2022-10-18 12:52 | PDOC.CMIN ---
Date of service: 10/18/22 Time of Service: 12:52 Care Management Initial Assmt Initial Assessment REASON FOR HOSPITALIZATION:: SBO PREVIOUS FUNCTIONAL STATUS/SOCIAL/FAMILY SUPPORTS:: Gloria lives in [place] with her Gerald. 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 She drives and is active and independent at baseline. CURRENT FUNCTIONAL STATUS:: Gloria was lying in bed when CM met with her. She is awake and easily engages in conversation. Gloria denies any concerns at this time. ADVANCE DIRECTIVES:: None on file. CM provided patient with forms. Has patient been provided with info about the portal/API?: Yes Did the patient sign up for the portal?: Yes CODE STATUS:: Full Code INSURANCE COVERAGE / FINANCIAL ISSUES:: [facility] Advantage [facility] Medicare CURRENT HOME/COMMUNITY SERVICES/EQUIPMENT:: None PRIMARY CARE PHYSICIAN:: Perry Montague POTENTIAL DISCHARGE NEEDS:: Follow up appointments, discharge plan of care PATIENT/FAMILY EDUCATION NEEDS:: Review discharge instructions, limitations, medications and plan to follow up with community providers. Discuss ask me three. ANTICIPATED BARRIERS TO DISCHARGE:: None identified TRANSPORTATION:: Via private vehicle with PLAN:: Gloria will discharge home via private vehicle with when medically cleared per provider. She will follow up with community providers and her discharge plan of care as prescribed. CM will follow. PFSH All Active Problems (Updated 10/18/22 @ 00:39 by Philip Berry MD) SBO (small bowel obstruction) (Acute) Postmenopausal Bleeding (Acute) Osteoporosis (Chronic) 09/2021-[facility] scan [facility], 1 out of 3 sites positive at spine, followed by rheumatology [facility]?-treated with Reclast Hypothyroid (Chronic) 09/2021, Vitamin D deficiency (Acute) Chronic kidney disease, stage 3a (Acute) Urology [facility] Sensorineural hearing loss, bilateral (Acute) Cervical intraepithelial neoplasia grade III with severe dysplasia (Acute 05/14/80) Proteinuria (Acute 09/07/15) Polyarthralgia (Acute) 2017 [facility] [place] Rheumatology; inflammatory osteoarthritis/Hydrochloroquine started /eye exam yearly/ do Dexa scan Pernicious anemia (Chronic) Microscopic hematuria (Acute 02/11/14) Abnormal urinary cytology 01-25/ Dysphagia (Acute 11/26/13) gastroscopy 11-01-2103 : eosinophilic esophagitis or severe reflux esophagitis/small stricture in distal oesophagus Dr Briseno 2016: peptic duodenitis 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) GERD (gastroesophageal reflux disease) (Chronic) Crohns disease (Chronic) Medical History (Updated 10/18/22 @ 00:39 by Philip Berry MD) Anemia Dx 2012 Cervical intraepithelial neoplasia grade III with severe dysplasia 1980 Crohn's disease 1980 Kidney stone ?2004 passed Proctitis Small bowel obstruction 2009, 2010 Surgical History (Updated 08/08/21 @ 11:47 by Anthony Ramirez MD) Biopsy, Cold knife Cone 1980 Cholecystectomy 1980 Colectomy complete colectomy Ileostomy 1980 Family History Mother , age 86 Diabetes Essential hypertension Heart disease Hyperlipidemia Stroke Colon cancer Father , age 91 Stroke Skin cancer Brother , age 26 Depression Alcohol abuse Substance abuse Maternal Grandfather No problems noted. Paternal Grandfather Stroke Maternal Grandmother No problems noted. Paternal Grandmother Stroke Brother Diabetes PRE Brother Hyperlipidemia Hypertension Brother Essential hypertension Heart disease Hyperlipidemia Son No problems noted. Daughter No problems noted. Social History (Updated 09/12/22 @ 17:31 by Sophie Moore) Smoking/Tobacco Use Status: Never Second Hand Exposure: No Smoking risk assessment performed?: Yes Alcohol Intake: current Alcohol Intake frequency: a few times a month Alcohol type: wine and hard liquor Drug use: Never Substance use type: does not use Caregiver/Support person: No Household members: spouse Housing: house Communication Needs: None Do you need help understanding health information?: Never Pets and animals: Yes Pets and animals: cat(s) Sexually active: Yes Do you think of yourself as: straight/heterosexual Current gender identity: female What is your relationship status?: How often do you talk on the phone with friends or family?: three or more times per week How often do you get together with friends or relatives?: once per week How often do you attend holiness or congregational services?: decline to answer Do you belong to any clubs or organized social groups?: yes Panel score (0-1 are the most socially isolated patients): 3 What type of physical activity do you participate in: walking and bicycling Duration: 15-30 minutes/day Frequency: 3-4 times per week Karol/Christian: Sikhism Special karol needs: No Seatbelt use: always Helmet use: Yes Helmet use: sometimes Drive intox or ride w/intox 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
[2022-10-18 15:37] VITALS: BP 129/68; PULSE 69; RESP 16; TEMP 37.5; O2SAT 96
--- NOTE | 2022-10-18 15:42 | CHAPLAIN ---
Gloria was in bed when I visited. I explained my role and offered support.
[2022-10-18] MEDS: Gastrografin 120 ML BTL PO (16:23)
[2022-10-18 23:29] VITALS: BP 144/84; PULSE 63; RESP 18; TEMP 37.3; O2SAT 94
[2022-10-19] MEDS: Ondansetron 4 MG/2 ML VIAL IVP (03:37)
[2022-10-19] MEDS: MORPHine 4 MG/ML SYR 3 MG IVP (05:42)
[2022-10-19 06:40] LABS: HCT 36.6 % (36.0-46.0); HGB 12.1 g/dL (11.2-15.7); MCH 31.1 pg (27.0-33.0); MCHC 33.1 % (32.0-36.0); MCV 94 fL (80-95); MPV 11.1 fL (8.0-11.0); Platelet Count 222 10^3/uL (130-400); RBC 3.89 10^6/uL (3.93-5.22); RDW-SD 44.6 fL; WBC 11.66 10^3/uL (4.4-10.8)
[2022-10-19 07:05] LABS: Anion Gap 11.9 mmol/L (3-11); BUN 18 mg/dL (7-18); CO2 27.1 mmol/L (21.0-32.0); CREATININE 1.2 mg/dL (0.55-1.02); Calcium 9.2 mg/dL (8.5-10.1); Chloride 105 mmol/L (98-107); Glucose 103 mg/dL (74-106); Potassium 3.5 mmol/L (3.5-5.1); Sodium 144 mmol/L (136-145)
[2022-10-19 07:17] VITALS: BP 114/66; PULSE 76; RESP 16; TEMP 37.4; O2SAT 96
[2022-10-19] MEDS: Lactated Ringers 1,000 ML 100 ML IV ×2 (07:51→18:32)
--- NOTE | 2022-10-19 08:11 | W.PM.PROGNOT ---
Date of Service Date of service: 10/19/22 Time of Service: 10:45 Assessment and Plan Assessment and plan (1) SBO (small bowel obstruction): Status: Acute Assessment and plan: 72-year-old woman who has a small bowel obstruction but seems to be resolving. She is hemodynamically stable. Her abdominal exam is pretty benign except for some mild distention which is definitely not worse than yesterday. She is starting to have ileostomy output and the volume has been significant in the last couple of hours. I am optimistic that her bowel obstruction is resolving. She reports that this is how it resolved the last time (about 10 years ago). Plan: Clear liquid diet and see how she does We may do a plain film later this afternoon if her clinical presentation is uncertain and see where the contrast made it to. If she is completely resolved by this afternoon and tolerating a diet and having copious output from her ileostomy, she can probably be discharged home. Will reassess later today. Subjective Subjective Interval history since last seen: Overnight multiple efforts to put in an NG tube were attempted. The patient did not tolerate any of them (5 times) and she asked for the tube to be removed on a couple of occasions. She did vomit 3-4 times. However this morning, at the bedside, her ostomy has started putting out. 400 cc were just emptied a minute or 2 before I rounded. She denies abdominal pain but has mild discomfort still. She does not feel nauseated. She wants to try drinking clear liquids. Exam Narrative Exam Narrative: General: Nontoxic, comfortable and interactive Neuro: Alert and oriented x3 Psych: Good mood and affect, good insight and understanding Abdomen: Soft, still mildly distended, no significant tenderness to examination. Objective Last Vital Signs Temp 99.3 F 10/19/22 07:17 Pulse 76 10/19/22 07:17 Resp 16 10/19/22 07:17 BP 114/66 10/19/22 07:17 Pulse Ox 96 10/19/22 07:17 Laboratory Results - last 24 hr 10/19/22 10/19/22 05:48 05:48 WBC 11.66 H RBC 3.89 L Hgb 12.1 D Hct 36.6 MCV 94 MCH 31.1 MCHC 33.1 RDW 13.0 Plt Count 222 MPV 11.1 H Sodium 144 Potassium 3.5 Chloride 105 Carbon Dioxide 27.1 Anion Gap 11.9 H BUN 18 Creatinine 1.2 H Est GFR (CKD-EPI 2020) 48.70 Glucose 103 Calcium 9.2 PAWSS Have you Been Recently Intoxicated or Drunk Within the Last 30 days?: No Have you Ever Experienced Previous Episodes of Alcohol Withdrawal?: No Have you ever Experienced Withdrawal Seizures?: No Have you ever Experienced Delirium Tremens(DT)s?: No Have you ever undergone Alcohol Rehabilitation Treatment (i.e, inpt ot outpatient treatment programs)?: No Have you ever Experienced Blackouts?: No Have you ever Combined Alcohol with other Downers within the last 90 days?: No Have you ever Combined Alcohol with any other Substance of Abuse during the last 90 days?: No Positive Blood Alcohol level on Presentation? [PCS.BAL]: No Evidence of Increased Autonomic Activity (i.e. HR>120, tremor, sweating, agitation, nausea)?: No Result: 0 Time Spent with Patient Time Spent with Patient: <25 minutes Time was spent: indepentently interpreting results, counseling the patient and care coordination
--- NOTE | 2022-10-19 15:14 | CMPROGNOTE_ITS ---
Date of service: 10/19/22 Time of Service: 15:14 Care Management Progress Note Progress Note Text Progress Note Text: S/O: Gloria is admitted to the MS unit and being followed by Surgical services. She may be able to discharge home later today, if she tolerates a diet, per provider report. CM will follow. A: 72 year old female admitted to [facility] on 10/18/22 for SBO P: Anticipate, Gloria will discharge home via private vehicle with when medically cleared per Surgical Provider. She will follow up with community providers and her discharge plan of care as prescribed.
[2022-10-19 16:05] VITALS: BP 109/61; PULSE 77; RESP 18; TEMP 38; O2SAT 90
[2022-10-19 18:30] VITALS: TEMP 38.2
[2022-10-19 21:05] VITALS: TEMP 37.5
[2022-10-19] MEDS: Acetaminophen 500 MG TAB 1000 MG PO (21:05)
[2022-10-19 21:13] VITALS: BP 103/58; PULSE 77; RESP 16; TEMP 37.5; O2SAT 93
[2022-10-20] VITALS: BP 94/55; PULSE 67; RESP 18; TEMP 37.4; O2SAT 93
[2022-10-20] MEDS: Acetaminophen 500 MG TAB 1000 MG PO (03:53)
--- NOTE | 2022-10-20 07:23 | DSE_ITS ---
Date of service: 10/20/22 Time of Service: 07: DS: Diagnosis Discharge Diagnosis (1) SBO (small bowel obstruction): Status: Acute Discharge Plan Disposition Condition: Stable Condition: Improving Discharge Details Reason For Visit: sbo Admit Date/Time: 10/18/22 00:43 Admit Provider: Dante Ybarra Attending Provider: Dante Ybarra Primary Care Provider: Perry Montague Hospital Course Hospital Course: Mrs Coburn is a pleasant 72-year-old female who was admitted on October 18 with a small bowel obstruction. The patient has had a total colectomy and has an end ileostomy in the right lower quadrant. She states that she has had a small bowel obstruction before which was able to resolve without surgery. She was admitted to the hospital and placed on bowel rest. She was given IV fluids. She did have an episode of vomiting the morning of October 19. They did attempt to place an NG tube without success. By early afternoon the patient's ostomy started working. There was gas and lots of liquid stool within the ostomy bag. She was started on clear liquids which she tolerated. Her diet was advanced to a regular diet the morning of October 20 which she tolerated. She was discharged home. Home Meds and New Rx's Prescriptions: Continued hydroxychloroquine 200 mg tablet 200 mg PO DAILY Patient Comments: Only taking 1 tab/cap daily 03/18/18 AT cyanocobalamin (vitamin B-12) 1,000 mcg tablet 1,000 mcg PO DAILY Qty: 90 4RF biotin 1 mg capsule 1 mg PO DAILY acetaminophen 500 mg capsule 500 - 1,000 mg PO Q6H PRN cholecalciferol (vitamin D3) 1,000 unit capsule 1,000 unit PO DAILY omeprazole 20 MG tablet,delayed release (DR/EC) 20 mg PO DAILY PRNQty: 30 magnesium oxide 400 mg (241.3 mg magnesium) tablet 400 mg PO DAILY Qty: 90 levothyroxine 50 mcg tablet 50 mcg PO DAILY Qty: 90 3RF Discharge Instructions Instructions: Bowel Obstruction (DC) Additional Instructions: Activity at Home after surgery: 1. As tolerated Diet, Nutrition, & wound healin. As tolerated Medications: please restart your home medications For Constipation: 1. Take Milk of Magnesia or MiraLax as needed for constipation Please call our office if you develop: 1. Fevers >101.5 2. Nausea or Vomiting 3. Worsening pain 4. Your ostomy stops working again If after hours please call the Hospital at and ask to speak to the on-call surgeon Referrals: Perry Montague, [employer] [Primary Care Provider] - (10 days for post admision check) Activity:: Activity as Tolerated Activity:: Activity as Tolerated Equipment/Supplies:: No Equipment Needed Diet:: As Tolerated DS: Summary Time Spent with Patient providing and/or coordinating discharge services: Less than 30 minutes Status at Discharge Functional status at discharge: independent ambulation Overall status at discharge: patient is back to baseline Mental Status: mental status grossly normal Speech and Movement: speech and movement normal Mood: congruent mood Affect: normal affect Exam Const General: cooperative, comfortable and no acute distress Nutritional Appearance: average body habitus Orientation: alert and oriented x3 HENMT Head: normocephalic and atraumatic Resp Effort & Inspection: normal respiratory effort GI Inspection: other (ostomy bag with air and stool) Palpation: soft, no hepatosplenomegaly and tender (mild around the ostomy. NO gurading or rebound) Auscultation: normal bowel sounds Psych Mental Status: mental status grossly normal Speech and Movement: speech and movement normal Mood: congruent mood Affect: normal affect DS: Data Vitals/I&O Vitals and I&O: Vital Signs Temperature 99.3 F 10/20/22 00:00 Temperature Source Tympanic 10/20/22 00:00 Pulse 67 10/20/22 00:00 Pulse Rhythm Regular 10/19/22 22:40 Respiratory Rate 18 10/20/22 00:00 Respiratory Effort Normal 10/19/22 22:40 Respiratory Depth Normal 10/19/22 22:40 Respiratory Pattern Normal 10/19/22 22:40 Blood Pressure 94/55 L 10/20/22 00:00 Blood Pressure Position Sitting 10/17/22 21:51 Pulse Oximetry 93 10/20/22 00:00 Oxygen Delivery Method Room Air 10/20/22 00:00 Oxygen Flow Rate 0 10/20/22 00:00 Pain Level 4 10/20/22 03:53 Intake & Output 10/19/22 10/19/22 10/20/22 11:59 23:59 11:59 Intake Total 998.333 / 3972.611 3687 / 5331.349 7912 / 1000 Output Total 2400 / 3600 1200 / 3600 150 / 150 Balance -1401.667 / -1601.667 -200 / -1601.667 850 / 850 Intake: IV 998.333 / 1007.533 5032 / 1302.654 4721 / 1000 Output: Urine 450 / 750 300 / 750 100 / 100 Stool 550 / 1450 900 / 1450 50 / 50 Emesis 1400 / 1400 Other: Urine Color Light Essie Yellow Yellow Urine Appearance Clear Sediment Cloudy Urine Odor None None Normal Stool Characteristics Liquid Liquid Liquid Brown Brown Emesis Description Bile Voiding Methods Toilet Toilet [facility] All Active Problems SBO (small bowel obstruction) (Acute) Postmenopausal Bleeding (Acute) Osteoporosis (Chronic) 09/2021-DEXA scan with [facility], 1 out of 3 sites positive at spine, followed by rheumatology [facility]?-treated with Reclast Hypothyroid (Chronic) 09/2021, Vitamin D deficiency (Acute) Chronic kidney disease, stage 3a (Acute) Urology [facility] Sensorineural hearing loss, bilateral (Acute) Cervical intraepithelial neoplasia grade III with severe dysplasia (Acute 05/14/80) Proteinuria (Acute 09/07/15) Polyarthralgia (Acute) 2017 [facility] [place] Rheumatology; inflammatory osteoarthritis/Hydrochloroquine started /eye exam yearly/ do Dexa scan Pernicious anemia (Chronic) Microscopic hematuria (Acute 02/11/14) Abnormal urinary cytology 01-25/ Dysphagia (Acute 11/26/13) gastroscopy 11-01-2103 : eosinophilic esophagitis or severe reflux esophagitis/small stricture in distal oesophagus Dr Briseno 2016: peptic duodenitis 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) GERD (gastroesophageal reflux disease) (Chronic) Crohns disease (Chronic) Medical History Anemia Dx 2012 Cervical intraepithelial neoplasia grade III with severe dysplasia 1980 Crohn's disease 1980 Kidney stone ?2004 passed Proctitis Small bowel obstruction 2009, 2010 Surgical History Biopsy, Cold knife [facility] 1980 Cholecystectomy 1980 Colectomy complete colectomy Ileostomy 1980 Family History Mother , age 86 Diabetes Essential hypertension Heart disease Hyperlipidemia Stroke Colon cancer Father , age 91 Stroke Skin cancer Brother , age 26 Depression Alcohol abuse Substance abuse Maternal Grandfather No problems noted. Paternal Grandfather Stroke Maternal Grandmother No problems noted. Paternal Grandmother Stroke Brother Diabetes PRE Brother Hyperlipidemia Hypertension Brother Essential hypertension Heart disease Hyperlipidemia Son No problems noted. Daughter No problems noted. Social History Smoking/Tobacco Use Status: Never Second Hand Exposure: No Smoking risk assessment performed?: Yes Alcohol Intake: current Alcohol Intake frequency: a few times a month Alcohol type: wine and hard liquor Drug use: Never Substance use type: does not use Caregiver/Support person: No Household members: spouse Housing: house Communication Needs: None Do you need help understanding health information?: Never Pets and animals: Yes Pets and animals: cat(s) Sexually active: Yes Do you think of yourself as: straight/heterosexual Current gender identity: female What is your relationship status?: How often do you talk on the phone with friends or family?: three or more times per week How often do you get together with friends or relatives?: once per week How often do you attend buddhist or oriental orthodox services?: decline to answer Do you belong to any clubs or organized social groups?: yes Panel score (0-1 are the most socially isolated patients): 3 What type of physical activity do you participate in: walking and bicycling Duration: 15-30 minutes/day Frequency: 3-4 times per week Karol/Anabaptist: Congregational Special karol needs: No Seatbelt use: always Helmet use: Yes Helmet use: sometimes Drive intox or ride w/intox 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
--- NOTE | 2022-10-20 07:41 | PDOC.CMDIS ---
Date of service: 10/20/22 Time of Service: 07:41 LACE Index Scoring Tool Questions: Length of Stay (in days): 2 Was the patient admitted via the E.D.?: Yes Comorbidities: Liver or Renal Disease E.D. Visits: 1 Answers: Total Score: 11 Risk of Readmission: High Risk Care Management Discharge Plan Reason for Hospitalization: SBO Discharge Plan: Gloria is discharged home via private vehicle with family. She will follow up with community providers and her discharge plan of care as instructed. No new services are ordered. Patient/Family Education Needs: Review discharge instructions, limitations, medications and plan to follow up with community providers. Discuss ask me three.
[2022-10-20 08:21] VITALS: BP 113/63; PULSE 61; RESP 16; TEMP 36.9; O2SAT 93
[2022-10-20 08:35] LABS: Abs Immature Grans 0.03 10^3/uL (0.0-0.06); Absolute Basophil Count 0.04 10^3/uL (0.0-0.2); Absolute Eosinophil Count 0.23 10^3/uL (0.0-0.7); Absolute Lymphocyte Count 0.95 10^3/uL (1.2-3.4); Absolute Neutrophil Count 6.23 10^3/uL (1.2-6.7); Basophils % 0.5; Eosinophils % 2.9; HCT 33.4 % (36.0-46.0); HGB 11.2 g/dL (11.2-15.7); Immature Grans % 0.4; Lymphocytes % 11.9; MCH 31.1 pg (27.0-33.0); MCHC 33.5 % (32.0-36.0); MCV 93 fL (80-95); MPV 10.6 fL (8.0-11.0); Monocytes % 6.3; Platelet Count 179 10^3/uL (130-400); RDW 12.9 % (11.7-14.6); RDW-SD 44.3 fL; WBC 7.98 10^3/uL (4.4-10.8)
--- NOTE | 2022-10-20 08:49 | DI.RAD_ITS ---
Exam(s) XR ABDOMEN FLAT UPRIGHT EXAM: 2D digital imaging was performed. CLINICAL HISTORY: f/u SBO. COMPARISON: CR XR ABDOMEN FLAT UPRIGHT from 10/17/2022 TECHNIQUE: Supine and upright views of the abdomen was performed. Three images were obtained. FINDINGS: LUNG BASES: There are bilateral basilar infiltrates, left greater than right. There does appear to b e a small left pleural effusion. BOWEL GAS PATTERN: Nondistended. No evidence of bowel obstruction. FREE AIR: None. CALCIFICATIONS: No radiopaque calcifications. OSSEOUS STRUCTURES: Normal for age. OTHER FINDINGS: Surgical clips are seen in the right upper quadrant of the abdomen suggesting prior c holecystectomy. IMPRESSION: 1. No evidence to suggest a bowel obstruction. 2. Bilateral basilar infiltrates, left greater than right and small left pleural effusion. DATA REPOSITORY: RADIATION DOSE DELIVERED:
== END 2022-10-20 10:32 | disposition home or self-care (01) | DRG 390 ==
LOC: ER 10-18 00:58 → MS 10-18 01:23
PROVIDERS: Surgery; Admitting Provider Student in an Organized Health Care Education/Training Program; Emergency Provider Emergency Medicine; PCP Nurse Practitioner Family; Visit Provider Student in an Organized Health Care Education/Training Program
DX: K56.609 Unspecified intestinal obstruction, unspecified as to partial versus complete obstruction (principal); Z90.49 Acquired absence of other specified parts of digestive tract; Z93.2 Ileostomy status; M81.0 Age-related osteoporosis without current pathological fracture; E03.9 Hypothyroidism, unspecified; R11.11 Vomiting without nausea; E55.9 Vitamin D deficiency, unspecified; N18.31 Chronic kidney disease, stage 3a; H90.3 Sensorineural hearing loss, bilateral; M15.9 Polyosteoarthritis, unspecified; D51.0 Vitamin B12 deficiency anemia due to intrinsic factor deficiency; K21.9 Gastro-esophageal reflux disease without esophagitis; Z87.19 Personal history of other diseases of the digestive system
CPT/HCPCS: 36415; 80048; 80053; 83690; 85027; 99222; 99231; 99238; 74019; 74177; 83605; 85025; J2270; J2405; J3490

== ENCOUNTER 2022-10-30 12:55 | Outpatient (CLI) | payer MEDICARE, SELFPAY ==
[2022-10-30 14:15] LABS: Anion Gap 7.9 mmol/L (3-11); BUN 18 mg/dL (7-18); CO2 24.1 mmol/L (21.0-32.0); CREATININE 1.3 mg/dL (0.55-1.02); Calcium 9.5 mg/dL (8.5-10.1); Chloride 103 mmol/L (98-107); Estimated GFR 44.24 (mL/min/1.73m2); Glucose 99 mg/dL (74-106); Sodium 135 mmol/L (136-145); TSH (W/Ref FT4) 3.96 uIU/mL (0.36-3.74)
[2022-10-30 14:32] LABS: FREE T4 1.02 ng/dL (0.76-1.46)
== END 2022-10-30 12:56 | disposition home or self-care (01) ==
LOC: LBO 12:55
PROVIDERS: PCP Nurse Practitioner Family; Visit Provider Nurse Practitioner
DX: N28.9 Disorder of kidney and ureter, unspecified (principal); M81.0 Age-related osteoporosis without current pathological fracture; Z79.899 Other long term (current) drug therapy
CPT/HCPCS: 36415; 80048; 84439; 84443

== ENCOUNTER → 2023-07-03 04:05 | Outpatient (CLI) | payer MEDICARE, SELFPAY ==
--- NOTE | 2023-07-03 07:45 | DI.MAMMO_ITS ---
Exam(s) MAMMO SCREENING EXAM: MAMMO SCREENING CLINICAL HISTORY: screening,Z12.39. TECHNIQUE: Bilateral full field digital CC and MLO mammographic images were obtained with 3D tomosyn thesis and utilizing computer aided detection (CAD). COMPARISON: Prior mammograms were reviewed. FINDINGS: There has been no significant change in the appearance and distribution of the fibroglandular tissue. Small subtle benign-appearing nodular density in the right breast on the CC view located 3 cm in from the nipple is unchanged from prior mammograms. There are no new spiculated masses nor malignant appearing microcalcification groups. There is no significant architectural distortion nor skin thickening-retraction. IMPRESSION: Stable benign findings. No radiographic evidence of malignancy. BI-RADS Category 2 - Benign Findings Breast Density - Category B - Scattered areas of fibroglandular density Breast density Category C or D implies that the patient has dense breast tissue. Dense breast tissue can make it harder to find cancer on a mammogram. Dense breast tissue is also associated with an incr eased risk of breast cancer. This information about the result of the mammogram report was provided to the patient to raise their awareness. Use this report when you speak with the patient about their risks for breast cancer, which includes their family history. At that time, you may recommend additional screening tests (Ultrasoun d or MRI) as these tests may add significant information. A negative radiographic report should not delay biopsy if a dominant or clinically suspicious mass is present. Up to ten percent of cancers are not identified on mammography. A negative report may reinforce clinical impression. Adenosis and dense breasts may obscure an underlying neoplasm. False positive reports average 6 to 10%. Patient will receive a letter notifying them of these results.
== END ==
PROVIDERS: PCP Nurse Practitioner Family; Visit Provider Obstetrics & Gynecology Gynecology
DX: Z12.31 Encounter for screening mammogram for malignant neoplasm of breast (principal)
CPT/HCPCS: 77063; 77067

== ENCOUNTER → 2023-10-18 14:42 | Outpatient (CLI) | payer MEDICARE, SELFPAY ==
--- NOTE | 2023-10-18 10:30 | DI.RAD_ITS ---
Exam(s) XR RIBS RT W PA LAT CHEST EXAM: XR RIBS RT W PA LAT CHEST CLINICAL HISTORY: fall right rib pain W19.XXXA FALL TECHNIQUE: 2D digital imaging was performed. COMPARISON: No exams were available for comparison FINDINGS: RIBS 4 VIEWS-RIGHT There are no obvious acute rib fractures evident. No lytic rib lesions identified. CXR- 2 VIEWS: No lung contusion or pneumothorax. There is no pleural effusion evident. Heart size is normal and there is no significant mediastinal widening. IMPRESSION: 1. No obvious rib fractures evident. Also no significant rib lesions. 2. No ipsilateral lung nor pleural abnormality evident. No pneumothorax. DATA REPOSITORY: RADIATION DOSE DELIVERED:
--- NOTE | 2023-10-18 10:30 | DI.RAD_ITS ---
Exam(s) XR ELBOW RT COMPLETE EXAM: XR ELBOW RT COMPLETE CLINICAL HISTORY: Fall right elbow pain W19.XXXA FALL. TECHNIQUE: 2D digital imaging was performed. COMPARISON: No exams were available for comparison FINDINGS: 3 views There is an extremely subtle fracture of the radial head-neck on its lateral aspect, nondisplaced. T here is a joint effusion noted-hemarthrosis. Condyles unremarkable. No degenerative changes. IMPRESSION: Very subtle fracture of the lateral aspect of the radial head-neck junction DATA REPOSITORY: RADIATION DOSE DELIVERED:
--- NOTE | 2023-10-18 10:30 | DI.RAD_ITS ---
Exam(s) XR FOREARM RT EXAM: XR FOREARM RT CLINICAL HISTORY: arm pain W19.XXXA FALL. TECHNIQUE: 2D digital imaging was performed. COMPARISON: No exams were available for comparison FINDINGS: 3 views There is a very subtle fracture of the radial head on its lateral aspect at junction with the radial neck. Nondisplaced. Not significantly impacted. Articular surface appears unremarkable. No other forearm bone fractures identified. No radiopaque foreign body. IMPRESSION: Subtle radial head fracture. DATA REPOSITORY: RADIATION DOSE DELIVERED:
--- NOTE | 2023-10-18 11:24 | DI.RAD_ITS ---
Exam(s) XR FINGER LT LITTLE EXAM: XR FINGER LT LITTLE CLINICAL HISTORY: finger pain W19.XXXA FALL. TECHNIQUE: 2D digital imaging was performed. COMPARISON: No exams were available for comparison FINDINGS: 3 views There is a nondisplaced fracture on the volar base of the middle phalanx of the 5th finger. This is seen on the lateral view. No radiopaque foreign body. No osseous lesions. IMPRESSION: Nondisplaced fracture at the base of the middle phalanx. DATA REPOSITORY: RADIATION DOSE DELIVERED:
== END ==
PROVIDERS: PCP Nurse Practitioner Family; Visit Provider Physician Assistant
DX: W19.XXXA Unspecified fall, initial encounter (principal); S62.653A Nondisplaced fracture of middle phalanx of left middle finger, initial encounter for closed fracture; R10.9 Unspecified abdominal pain; S52.124A Nondisplaced fracture of head of right radius, initial encounter for closed fracture; X58.XXXA Exposure to other specified factors, initial encounter
CPT/HCPCS: 71046; 71100; 73080; 73090; 73140

== ENCOUNTER 2023-11-13 11:22 | Outpatient (CLI) | payer MEDICARE, SELFPAY ==
--- NOTE | 2023-11-13 11:00 | DI.RAD_ITS ---
Exam(s) XR ELBOW RT COMPLETE EXAM: XR ELBOW RT COMPLETE CLINICAL HISTORY: F/U FRACTURE. TECHNIQUE: 2D digital imaging was performed. COMPARISON: CR XR ELBOW RT COMPLETE from 10/18/2023 FINDINGS: 3 views Again noted is previously described transverse fracture of the radial neck. Fracture line is better visualized than on the previous study. No prominent displacement or impaction. Adjacent capitellum appears unremarkable. There are no loose bodies in the joint and no further increase in size of join t effusion. IMPRESSION: Fracture line of the radial neck appears more apparent than on the prior images of 10/18/2023. Promi nent displacement. DATA REPOSITORY: RADIATION DOSE DELIVERED:
--- NOTE | 2023-11-13 11:00 | DI.RAD_ITS ---
Exam(s) XR FINGER LT LITTLE EXAM: XR FINGER LT LITTLE CLINICAL HISTORY: F/U FRACTURE. TECHNIQUE: 2D digital imaging was performed. COMPARISON: CR XR FINGER LT LITTLE from 10/18/2023 FINDINGS: 3 views Again noted is the fracture of the volar base of the middle phalanx of the 5th finger. However, ther e appears to be slight further displacement of the fracture fragment as seen on the lateral view. Th ere also degenerative changes in the PIP joint again evident. No new additional fracture seen. IMPRESSION: Slight further displacement at the fracture site. DATA REPOSITORY: RADIATION DOSE DELIVERED:
== END 2023-11-13 11:23 | disposition home or self-care (01) ==
LOC: DIORS 11:22
PROVIDERS: PCP Nurse Practitioner Family; Referring Provider Nurse Practitioner Family; Visit Provider Student in an Organized Health Care Education/Training Program
DX: S52.121D Displaced fracture of head of right radius, subsequent encounter for closed fracture with routine healing; S62.607D Fracture of unspecified phalanx of left little finger, subsequent encounter for fracture with routine healing; V18.2XXD Unspecified pedal cyclist injured in noncollision transport accident in nontraffic accident, subsequent encounter
CPT/HCPCS: 99213; 73080; 73140

== ENCOUNTER 2023-12-11 11:53 | Outpatient (CLI) | payer MEDICARE, SELFPAY ==
--- NOTE | 2023-12-11 11:39 | DI.RAD_ITS ---
Exam(s) XR ELBOW RT COMPLETE EXAM: XR ELBOW RT COMPLETE INDICATION: F/U FRACTURE. COMPARISON: CR XR ELBOW RT COMPLETE from 11/13/2023 TECHNIQUE: 2D digital imaging was performed. Three views. FINDINGS: No change in alignment of the radial head fracture. Some increased callus formation is present. No new abnormalities. DATA REPOSITORY: RADIATION DOSE DELIVERED:
--- NOTE | 2023-12-11 11:39 | DI.RAD_ITS ---
Exam(s) XR FINGER LT LITTLE EXAM: XR FINGER LT LITTLE INDICATION: F/U FRACTURE. COMPARISON: CR XR FINGER LT LITTLE from 11/13/2023 TECHNIQUE: 2D digital imaging was performed. Two views. FINDINGS: Stable alignment fracture at the volar plate of the middle phalanx. No new abnormalities. DATA REPOSITORY: RADIATION DOSE DELIVERED:
== END 2023-12-11 11:54 | disposition home or self-care (01) ==
LOC: DIORS 11:53
PROVIDERS: PCP Nurse Practitioner Family; Referring Provider Nurse Practitioner Family; Visit Provider Student in an Organized Health Care Education/Training Program
DX: S52.121D Displaced fracture of head of right radius, subsequent encounter for closed fracture with routine healing; S62.607D Fracture of unspecified phalanx of left little finger, subsequent encounter for fracture with routine healing; X58.XXXD Exposure to other specified factors, subsequent encounter
CPT/HCPCS: 99213; 73080; 73140

== ENCOUNTER 2023-12-19 03:45 | Outpatient (CLI) | payer MEDICARE, SELFPAY ==
[2023-12-19 11:49] LABS: Calculated LDL 97 mg/dL (<100); Cholesterol 184 mg/dL (<200); HDL Cholesterol 55 mg/dL (40-60); TSH (W/Ref FT4) 8.24 uIU/mL (0.36-3.74); Triglyceride 162 mg/dL (<150); Vitamin B12 > 2000 pg/mL (193-986)
[2023-12-19 12:08] LABS: FREE T4 0.77 ng/dL (0.76-1.46)
[2023-12-20 12:19] LABS: Hemoglobin A1C 5.7 % (<5.7)
== END 2023-12-19 03:46 | disposition home or self-care (01) ==
LOC: LBO 03:45
PROVIDERS: PCP Nurse Practitioner Family; Visit Provider Nurse Practitioner Family
DX: Z13.1 Encounter for screening for diabetes mellitus (principal); Z13.6 Encounter for screening for cardiovascular disorders; E03.9 Hypothyroidism, unspecified; D51.0 Vitamin B12 deficiency anemia due to intrinsic factor deficiency
CPT/HCPCS: 36415; 80061; 82607; 83036; 84439; 84443

== ENCOUNTER 2024-01-31 05:09 | Emergency (ER) | payer MEDICARE, SELFPAY ==
[2024-01-31 05:12] VITALS: BP 167/64; PULSE 88; RESP 20; TEMP 36.8; O2SAT 97
--- NOTE | 2024-01-31 05:22 | DI.CT_ITS ---
Exam(s) CT ABDOMEN PELVIS WO EXAM: CT ABDOMEN PELVIS WO CLINICAL HISTORY: vomiting, hx of obstructions. TECHNIQUE: Imaging Protocol: Axial computed tomography images with coronal and sagittal reformatted images were created and reviewed CONTRAST MATERIAL: Intravenous: none Oral: Yes. Oral contrast was administered for bowel opacification COMPARISON: CT RENAL COLIC WO CONTRAST from 06/19/[address] ABDOMEN PELVIS W from 10/17/2022 FINDINGS: VISUALIZED LUNG BASES: Previously described subpleural 4 millimeter nodule in the left lower lobe jalen ears unchanged from CT scan of October 2022.. ABDOMEN: There is no ascites. LIVER: There are no new significant obvious focal hepatic lesions evident of this noninfused study. Benign-appearing hypodensity in the inferior right hepatic lobe is unchanged. GALLBLADDER/BILIARY: Gallbladder is again noted be surgically absent. CBD is not dilated. PANCREAS: No evidence of pancreatic mass nor dilatation of the pancreatic duct. SPLEEN: Spleen is not enlarged. No obvious intrasplenic lesions. ADRENALS: There are no significant adrenal masses. KIDNEYS:Benign cyst in the right kidney again noted, unchanged, not requiring further workup. No oth er focal kidney findings. No hydronephrosis . ABDOMINAL AORTA: Abdominal aorta is not enlarged. LYMPH NODES: There is no retroperitoneal nor paraaortic adenopathy. ABDOMINAL WALL: No evidence of significant anterior abdominal wall nor inguinal hernia. Right-sided ostomy. GI: Again noted is evidence of prior colectomy. Rectum is oversewn no abnormal findings at this leve l. The oral contrast has progressed to the level of the ileostomy bag. However, the stomach and duo denum as well as the esophagus are dilated as are proximal bowel loops which are dilated to 3.2 cm. The more distal small bowel loops exhibit normal diameter. The small bowel transition point is in th e central-right side of the lower pelvis where there is circumferential mural thickening of the bowel loop at 2 adjacent sites (series 7/image 102). PELVIS: LYMPH NODES: There is no intrapelvic nor inguinal adenopathy. URINARY BLADDER: No calculi nor obvious masses evident REPRODUCTIVE: Uterus and adnexal regions unremarkable. OSSEOUS: Nonacute mild superior endplate compression wedge fracture of L1 noted. Difficult osseous l esions evident. Sacroiliac joints appear unremarkable. IMPRESSION: 1. Findings are consistent with partial small bowel obstruction with transition point evident in the pelvis where there is circumferential transmural thickening of small bowel loops. Most probably infl ammatory bowel disease. 2. Previous colectomy and right sided ileostomy RADIATION DOSE DELIVERED: 378.14mGy.cm Total DLP DATA REPOSITORY: All CT scans at this facility are submitted to the National Radiology Data Registry (NRDR) Dose Index Registry (DIR) with the [employer] (ACR). RADIATION OPTIMIZATION: All CT scans at this facility use at least one of these dose optimization te chniques: automated exposure control; mA and/or kV adjustment per patient size (includes targeted exa ms where dose is matched to clinical indication); or iterative reconstruction.
--- NOTE | 2024-01-31 05:24 | ED.GENADUL_ITS ---
Discharge Plan Disposition Patient Disposition: Home Condition: Good Discharge Details Clinical Impression: Acute dehydration, Partial obstruction of small intestine Primary Care Provider: Perry Montague ED Provider: Kane Johnson Home Meds and New Rx's Prescriptions: No Action hydroxychloroquine 200 mg tablet 200 mg PO DAILY Patient Comments: Only taking 1 tab/cap daily 03/18/18 AT cyanocobalamin (vitamin B-12) 1,000 mcg tablet 1,000 mcg PO DAILY Qty: 90 4RF acetaminophen 500 mg capsule 500 - 1,000 mg PO Q6H PRN cholecalciferol (vitamin D3) 1,000 unit capsule 1,000 unit PO DAILY omeprazole 20 MG tablet,delayed release (DR/EC) 20 mg PO DAILY PRNQty: 30 magnesium oxide 400 mg (241.3 mg magnesium) tablet 400 mg PO DAILY Qty: 90 levothyroxine 50 mcg tablet 50 mcg PO DAILY Qty: 90 3RF Discharge Instructions Instructions: Dehydration, Adult (DC) Additional Instructions: At this time your CAT scan does not show any evidence of complete obstruction. There is a small partial obstruction though. No other significant abnormalities noted at this time. Your laboratory workup is reassuring. You have no evidence of pancreatitis. Please stick with a liquid diet for the next 24 to 48 hours, drink 10 to 12 cups of liquid minimum per day. Because of your previous surgeries I would recommend some extra compared to that. You can then transition to a soft food diet for the following 48 hours. Additionally, please follow-up closely with your primary care provider for reassessment. If you notice any worsening of your symptoms, or any new symptoms such as vomiting, diarrhea, fever, chills, shortness of breath, chest pain, numbness, weakness, or fainting , please return immediately to the emergency department for reevaluation. Please follow up with your primary care provider as soon as possible for reassessment and reevaluation. As always, it was a pleasure participating in your medical care today. Referrals: Perry Montague NP [Primary Care Provider] - HPI General Date/Time Provider Initiated Documentation: 01/31/24 05:11 . HPI Narrative: This is a very pleasant 73-year-old female with a past medical history of osteoarthritis, Crohn's disease on hydroxychloroquine, near complete colectomy, and current ileostomy, appendectomy and cholecystectomy, presents today for evaluation of abdominal pain and vomiting. Patient states that since around 2 PM she has had some cramping in the abdomen notably diminished ostomy output. She has had 1 episode of vomiting, and some nausea. She denies fever or chills. She denies medication changes or trauma. No recent upper respiratory infections. No blood in her ostomy. No other complaints. Patient states that this feels identical to her previous obstructions. Last obstruction was just over a year ago. Related Data Home Medications ?Medication ?Instructions ?Recorded ?Confirmed omeprazole 20 mg tablet,delayed 20 mg PO DAILY PRN #30 tab-caps 09/17/17 01/31/24 release acetaminophen 500 mg capsule 500 - 1,000 mg PO Q6H PRN 03/18/18 01/31/24 cholecalciferol (vitamin D3) 25 1,000 unit PO DAILY 02/25/19 01/31/24 mcg (1,000 unit) capsule cyanocobalamin (vitamin B-12) 1,000 mcg PO DAILY #90 tabs 07/22/19 01/31/24 1,000 mcg tablet hydroxychloroquine 200 mg tablet 200 mg PO DAILY 07/22/19 01/31/24 magnesium oxide 400 mg (241.3 mg 400 mg PO DAILY #90 tab-caps 11/21/19 01/31/24 magnesium) tablet levothyroxine 50 mcg tablet 50 mcg PO DAILY #90 tabs 12/20/23 01/31/24 Previous Rx's ?Medication ?Instructions ?Recorded cyanocobalamin (vitamin B-12) 1,000 mcg PO DAILY #90 tabs 07/22/19 1,000 mcg tablet levothyroxine 50 mcg tablet 50 mcg PO DAILY #90 tabs 12/20/23 Allergies Allergy/AdvReac Type Severity Reaction Status Date / Time prochlorperazine edisylate Allergy Severe Anaphylaxsi Verified 01/31/24 05:18 (From Compazine) s Sulfa (Sulfonamide Allergy Intermediate Ankle Verified 01/31/24 05:18 Antibiotics) Swelling General Stated Complaint: Abd Prob VIVI: 3 Review of Systems All systems reviewed & are unremarkable except as noted in HPI and below Exam Narrative Exam Narrative: 1.Const: Well-nourished, Well-developed, appearing stated age 2.Eyes: PERRL, no conjunctival injection, and symmetrical lids. 3.ENT: Atraumatic external nose and ears. Moist MM. Neck: Symmetric, trachea midline, No thyromegaly. 4.CVS: +S1/S2, No murmurs or gallops. Peripheral pulses 2+ and equal in all extremities. Brisk capillary refill in all extremities. 5.RESP: Unlabored respiratory effort. Clear to auscultation bilaterally. No wheezes rales or rhonchi 6.GI: Soft, nondistended, bowel sounds reduced. No guarding or rebound. Ostomy site demonstrates a small amount of stool present. 7.MSK: Normocephalic/Atraumatic, Extremities w/o deformity or ttp No cyanosis or clubbing, Normal movement of all extremities 8.Skin: Warm, Dry. No rashes or lesions. 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 Sensation grossly intact, no focal neurologic deficits. 10.Psych: (AAO) x3. Appropriate mood and affect Course Vital Signs Vital signs: Vital Signs Temperature 36.8 C 01/31/24 05:12 Pulse 88 01/31/24 05:12 Respiratory Rate 20 01/31/24 05:12 Blood Pressure 167/64 H 01/31/24 05:12 Pulse Oximetry 97 01/31/24 05:12 Temperature 36.8 C 01/31/24 05:12 Temperature Source Oral 01/31/24 05:12 Pulse 88 01/31/24 05:12 Respiratory Rate 20 01/31/24 05:12 Respiratory Effort Normal, Non-Labored 01/31/24 05:19 Blood Pressure 167/64 H 01/31/24 05:12 Blood Pressure Position Sitting 01/31/24 05:12 Pulse Oximetry 97 01/31/24 05:12 Oxygen Delivery Method Room Air 01/31/24 05:12 Oxygen Flow Rate 0 01/31/24 05:12 Medical Decision Making This is a very pleasant 73-year-old female with a past medical history of osteoarthritis, Crohn's disease on hydroxychloroquine, near complete colectomy, and current ileostomy, appendectomy and cholecystectomy, presents today for evaluation of abdominal pain and vomiting. Patient states that since around 2 PM she has had some cramping in the abdomen notably diminished ostomy output. She has had 1 episode of vomiting, and some nausea. She denies fever or chills. She denies medication changes or trauma. No recent upper respiratory infections. No blood in her ostomy. No other complaints. Patient states that this feels identical to her previous obstructions. Last obstruction was just over a year ago. Exam demonstrates well-appearing female. No guarding or rebound, mildly distended abdomen. Ostomy site demonstrates a small amount of stool. No blood. Concern for obstruction versus ileus. Symptoms appear less likely to be volvulus. High-grade obstruction is also on the differential with her surgical history. Will get a CT scan for further assessment of this. We will use oral contrast hopefully both diagnostically and therapeutically. Will rehydrate with a liter of LR, give antiemetics, check for electrolyte abnormalities, monitor closely and reassess. 7:42 AM Patient drank the contrast well with no vomiting, contrast made it completely through and into her ostomy. On reassessment she is feeling much better and feels comfortable and would like to go home. Laboratory workup shows no significant electrolyte abnormality. No white count bandemia or left shift. CT scan shows evidence of a partial small bowel obstruction, however clinically the patient has complete resolution of her symptoms, she feels well, and tolerated p.o. well with good ostomy output. I had a long discussion with the patient regarding admission and observation versus discharge. At this time through shared decision-making process patient is requesting to go home to see how things go. Will recommend continued aggressive liquid diet, and low threshold for return if symptoms return or worsen. Discussed red flags for which to return. I have extensively reviewed the treatment plan and discharge instructions with the patient. I have addressed all patient concerns at this time. The patient was made aware of what symptoms to monitor for that would warrant a return to the emergency department. Discussed the plan with the patient, they demonstrate verbal understanding and agreement with our assessment and plan at this time. The documentation in this chart was dictated using [employer] dictation software. Please excuse any dictation errors. FINDINGS: Limitations: No intravenous contrast was administered, limiting evaluation for some pathologies. Lungs: Scarring/atelectasis in the visualized lungs. Diaphragm: Hiatal hernia. Contrast in the distal esophagus. Correlate clinically for reflux. Liver: Hepatic steatosis. Contour irregularity in the liver. Correlate clinically for history of chronic liver disease/cirrhosis. Gallbladder and biliary ducts: No radiodense gallbladder calculi seen. Pancreas: No CT evidence for acute pancreatitis. Spleen: No splenomegaly. Adrenal glands: No mass. Kidneys and ureters: Right renal cysts. No hydronephrosis. Stomach and bowel: Right lower quadrant ostomy. Gastric distension. Multiple dilated air and fluidfilled small bowel loops are identified and collapsed loops are also seen. Findings are consistent with small bowel obstruction, likely low-grade/partial as contrast extends to the ostomy site. Transition point is seen in the pelvis. Mild thickening of small bowel loops in the pelvis. Appendix: Not visualized. Intraperitoneal space: Haziness of the mesenteric fat in the mid abdomen. Vasculature: Arterial calcifications. Lymph nodes: Nonspecific mesenteric and retroperitoneal lymph nodes. Urinary bladder: No acute findings. Reproductive: No acute findings. Bones/joints: No pertinent acute abnormality seen. Soft tissues: No pertinent acute abnormality seen. IMPRESSION: 1. Findings consistent with small bowel obstruction, likely low-grade/partial, as described above. 2. Small bowel thickening suggesting enteritis. 3. Additional findings as above. 4. THIS REPORT CONTAINS FINDINGS THAT MAY BE CRITICAL TO PATIENT CARE. The findings were verbally communicated via telephone conference with KANE JOHNSON at 7:42 AM EDT on 01/31/2024. The findings were acknowledged and understood. Thank you for allowing us to participate in the care of your patient. Dictated and Authenticated by: Cata Mackey MD 01/31/2024 7:42 AM Eastern Time ([place] & [place]) Quality:SDOH Health Related Social Needs: Health related social needs inadequate housing Health related social needs details None PFSH All Active Problems (Updated 01/31/24 @ 07:45 by Kane Johnson DO) Partial obstruction of small intestine (Acute) Acute dehydration (Acute) Fracture of phalanx of left little finger (Acute ~10/17/23) Right radial head fracture (Acute ~10/17/23) Lung nodule seen on imaging study (Acute) Postmenopausal Bleeding (Acute) Osteoporosis (Chronic) 09/2021-DEXA scan with [facility], 1 out of 3 sites positive at spine, followed by rheumatology [facility]?-treated with Reclast Hypothyroid (Chronic) 09/2021, Vitamin D deficiency (Acute) Chronic kidney disease, stage 3a (Acute) Urology [facility] Sensorineural hearing loss, bilateral (Acute) Cervical intraepithelial neoplasia grade III with severe dysplasia (Acute 05/14/80) Proteinuria (Acute 09/07/15) Polyarthralgia (Acute) 2017 [facility] [place] Rheumatology; inflammatory osteoarthritis/Hydrochloroquine started /eye exam yearly/ do Dexa scan Pernicious anemia (Chronic) Microscopic hematuria (Acute 02/11/14) Abnormal urinary cytology 01-25/ Dysphagia (Acute 11/26/13) gastroscopy 11-01-2103 : eosinophilic esophagitis or severe reflux esophagitis/small stricture in distal oesophagus Dr Briseno 2016: peptic duodenitis 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) GERD (gastroesophageal reflux disease) (Chronic) Crohns disease (Chronic) Medical History Small bowel obstruction 2009, 2010 Proctitis Crohn's disease 1980 Anemia Dx 2012 Cervical intraepithelial neoplasia grade III with severe dysplasia 1980 Kidney stone ?2003 passed Surgical History Ileostomy 1980 Colectomy complete colectomy Cholecystectomy 1980 Biopsy, Cold knife [facility] 1980 Family History Mother , age 86 Diabetes Essential hypertension Heart disease Hyperlipidemia Stroke Colon cancer Father , age 91 Stroke Skin cancer Brother , age 26 Depression Alcohol abuse Substance abuse Maternal Grandfather No problems noted. Paternal Grandfather Stroke Maternal Grandmother No problems noted. Paternal Grandmother Stroke Brother Diabetes PRE Brother Hyperlipidemia Hypertension Brother Essential hypertension Heart disease Hyperlipidemia Son No problems noted. Daughter No problems noted. 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 [employer] Pets and animals: Yes Pets and animals: cat(s) Sexually active: Yes Do you think of yourself as: straight/heterosexual Current gender identity: female What is your relationship status?: How often do you talk on the phone with friends or family?: three or more times per week How often do you get together with friends or relatives?: once per week How often do you attend rastafari or gnosticism services?: decline to answer Do you belong to any clubs or organized social groups?: yes Panel score (0-1 are the most socially isolated patients): 3 What type of physical activity do you participate in: walking and bicycling Duration: 30-45 minutes/day Frequency: 1-2 times per week Karol/Protestant: Mormonism Special karol needs: No Seatbelt use: always Helmet use: Yes Helmet use: sometimes Drive intox or ride w/intox driver examiner: No Firearms in home: No Do you feel safe at home: Yes Do you feel safe in your relationship?: Yes Would you like helpful sources: No Female Reproductive History Menstrual Menopause type: natural History History 0 Para Hx # Term Pregnancies Multiple births Hx # Pregnancies Ectopic pregnancies AB induced Hx Number of Living Children AB spontaneous
[2024-01-31 05:28] LABS: Lactate 1.4 mmol/L (0.6-1.4)
[2024-01-31 05:31] LABS: Abs Immature Grans 0.03 10^3/uL (0.0-0.06); Absolute Basophil Count 0.08 10^3/uL (0.0-0.2); Absolute Eosinophil Count 0.13 10^3/uL (0.0-0.7); Absolute Lymphocyte Count 1.05 10^3/uL (1.2-3.4); Absolute Monocyte Count 0.54 10^3/uL (0.1-0.8); Absolute Neutrophil Count 6.74 10^3/uL (1.2-6.7); Basophils % 0.9 %; Eosinophils % 1.5 %; HCT 44.1 % (36.0-46.0); HGB 14.4 g/dL (11.2-15.7); Immature Grans % 0.4 %; Lymphocytes % 12.3 %; MCH 30.9 pg (27.0-33.0); MCHC 32.7 % (32.0-36.0); MCV 95 fL (80-95); MPV 10.6 fL (8.0-11.0); Monocytes % 6.3 %; Neutrophils % 78.6 %; Platelet Count 259 10^3/uL (130-400); RBC 4.66 10^6/uL (3.93-5.22); RDW 13.7 % (11.7-14.6); WBC 8.57 10^3/uL (4.4-10.8)
[2024-01-31] MEDS: Lactated Ringers 1,000 ML 1000 ML IV (05:32)
[2024-01-31] MEDS: Ondansetron 4 MG/2 ML VIAL IVP (05:32)
[2024-01-31 05:46] LABS: ALT 44 U/L (14-59); AST 32 U/L (15-37); Albumin 4.2 g/dL (3.4-5.0); Alkaline Phosphatase 88 U/L (46-116); BUN 26 mg/dL (7-18); Bilirubin, Total 0.58 mg/dL (0.2-1.0); CREATININE 1.5 mg/dL (0.55-1.02); Calcium 10.1 mg/dL (8.5-10.1); Chloride 104 mmol/L (98-107); Estimated GFR 37.03 (mL/min/1.73m2); Glucose 130 mg/dL (74-106); Lipase 59 U/L (16-77); Potassium 3.8 mmol/L (3.5-5.1); Sodium 140 mmol/L (136-145); Total Protein 8.3 g/dL (6.4-8.2)
[2024-01-31] MEDS: Omnipaque 350 MG/ML 50 ML BTL PO (06:57)
[2024-01-31] MEDS: Breeza Beverage 473 ML BTL PO ×2 (07:01→07:03)
[2024-01-31] MEDS: Normal Saline 500 ML IV (07:32)
--- NOTE | 2024-01-31 07:43 | DI.VRAD_ITS ---
PROCEDURE INFORMATION: Exam: CT Abdomen And Pelvis Without Contrast Exam date and time: 01/31/2024 6:50 AM Age: 73 years old Clinical indication: Vomiting; Additional info: Vomiting, HX of obstructions TECHNIQUE: Imaging protocol: Computed tomography of the abdomen and pelvis without contrast. COMPARISON: CT ABDOMEN PELVIS W 10/17/2022 10:50 PM FINDINGS: Limitations: No intravenous contrast was administered, limiting evaluation for some pathologies. Lungs: Scarring/atelectasis in the visualized lungs. Diaphragm: Hiatal hernia. Contrast in the distal esophagus. Correlate clinically for reflux. Liver: Hepatic steatosis. Contour irregularity in the liver. Correlate clinically for history of chronic liver disease/cirrhosis. Gallbladder and biliary ducts: No radiodense gallbladder calculi seen. Pancreas: No CT evidence for acute pancreatitis. Spleen: No splenomegaly. Adrenal glands: No mass. Kidneys and ureters: Right renal cysts. No hydronephrosis. Stomach and bowel: Right lower quadrant ostomy. Gastric distension. Multiple dilated air and fluid-filled small bowel loops are identified and collapsed loops are also seen. Findings are consistent with small bowel obstruction, likely low-grade/partial as contrast extends to the ostomy site. Transition point is seen in the pelvis. Mild thickening of small bowel loops in the pelvis. Appendix: Not visualized. Intraperitoneal space: Haziness of the mesenteric fat in the mid abdomen. Vasculature: Arterial calcifications. Lymph nodes: Nonspecific mesenteric and retroperitoneal lymph nodes. Urinary bladder: No acute findings. Reproductive: No acute findings. Bones/joints: No pertinent acute abnormality seen. Soft tissues: No pertinent acute abnormality seen. IMPRESSION: 1. Findings consistent with small bowel obstruction, likely low-grade/partial, as described above. 2. Small bowel thickening suggesting enteritis. 3. Additional findings as above. 4. THIS REPORT CONTAINS FINDINGS THAT MAY BE CRITICAL TO PATIENT CARE. The findings were verbally communicated via telephone conference with CANDIDA JOHNSON at 7:42 AM EDT on 01/31/2024. The findings were acknowledged and understood. Dictated and Authenticated by: Cata Mackey MD. Ordering:ZULLY Middleton MD
[2024-01-31] MEDS: Ondansetron O.D.T. 4 MG TABEF, 3 TABS/BTL PO (07:55)
[2024-01-31 08:01] VITALS: BP 138/68; PULSE 69; RESP 15; O2SAT 99
== END 2024-01-31 08:02 | disposition home or self-care (01) ==
PROVIDERS: Emergency Provider Student in an Organized Health Care Education/Training Program; PCP Nurse Practitioner Family
DX: K56.600 Partial intestinal obstruction, unspecified as to cause (principal); E86.0 Dehydration; Z93.2 Ileostomy status
CPT/HCPCS: 36415; 80053; 83690; 96361; 96374; 99284; 74176; 83605; 85025; J2405; Q9967

== ENCOUNTER 2024-05-05 13:55 | Outpatient (REF) | payer MEDICARE, SELFPAY ==
[2024-05-05 13:05] LABS: Creatinine,Urine 112.59 mg/dL
[2024-05-05 13:07] LABS: Creatinine,24hr Ur 1.01 g/24hr (0.60-1.80); Total Volume 900 ml
[2024-05-06 09:20] LABS: Calcium Urine 7.6 mg/dL (See Note); Calcium Urine 24 hr 68 mg/24hr (100-300); Timed Urine Volume 900 mL; Urine Collection Period 24.5 Hours
== END 2024-05-05 13:56 | disposition home or self-care (01) ==
LOC: LBN 13:55
PROVIDERS: PCP Nurse Practitioner Family; Visit Provider Internal Medicine Endocrinology, Diabetes & Metabolism
DX: M81.0 Age-related osteoporosis without current pathological fracture (principal)
CPT/HCPCS: 81050; 82340; 82570

== ENCOUNTER 2024-08-06 16:30 | Outpatient (REF) | payer MEDICARE, SELFPAY ==
[2024-08-06 17:18] LABS: Creatinine,Urine 70.55 mg/dL
[2024-08-06 17:24] LABS: Creatinine,24hr Ur 0.85 g/24hr (0.60-1.80); Total Volume 1250 ml
[2024-08-08 08:36] LABS: Calcium Urine 6.8 mg/dL (See Note); Calcium Urine 24 hr 85 mg/24hr (100-300); Timed Urine Volume 1250 mL
== END 2024-08-06 16:31 | disposition home or self-care (01) ==
LOC: LBN 16:30
PROVIDERS: PCP Nurse Practitioner Family; Visit Provider Internal Medicine Endocrinology, Diabetes & Metabolism
DX: M81.0 Age-related osteoporosis without current pathological fracture (principal)
CPT/HCPCS: 81050; 82340; 82570

== ENCOUNTER 2024-09-16 00:20 | Outpatient (CLI) | payer MEDICARE, SELFPAY ==
--- NOTE | 2024-09-16 06:15 | DI.MAMMO_ITS ---
Exam(s) MAMMO SCREENING EXAM: MAMMO SCREENING CLINICAL HISTORY: screening,Z12.39. TECHNIQUE: Bilateral full field digital CC and MLO mammographic images were obtained with 3D tomosyn thesis and utilizing computer aided detection (CAD). COMPARISON: Prior mammograms were reviewed. FINDINGS: No new left breast findings. In the right breast there is again noted a small nodular density located 3 cm in from the nipple on t he CC view and measuring 5 x 4 mm. On the MLO view this is located 5 cm in from the nipple. On both views it appears slightly larger than previous. Additional imaging recommended. There are no malignant-appearing microcalcification groups is region or elsewhere in either breast. There is no significant architectural distortion nor skin thickening-retraction. IMPRESSION: 1. No radiographic evidence of malignancy in left breast. 2. There is a 5 x 4 mm nodule in the right breast as described above. Spot compression views and geovanni ast ultrasound recommended. BI-RADS Category 0 - Incomplete: Need additional imaging evaluation Breast Density - Category B - There are scattered areas of fibroglandular density. Breast density Category C or D implies that the patient has dense breast tissue. Dense breast tissue can make it harder to find cancer on a mammogram. Dense breast tissue is also associated with an incr eased risk of breast cancer. This information about the result of the mammogram report was provided to the patient to raise their awareness. Use this report when you speak with the patient about their risks for breast cancer, which includes their family history. At that time, you may recommend additional screening tests (Ultrasoun d or MRI) as these tests may add significant information. A negative radiographic report should not delay biopsy if a dominant or clinically suspicious mass is present. Up to ten percent of cancers are not identified on mammography. A negative report may reinforce clinical impression. Adenosis and dense breasts may obscure an underlying neoplasm. False positive reports average 6 to 10%. Patient will receive a letter notifying them of these results.
== END 2024-09-16 00:40 ==
LOC: DI 00:20
PROVIDERS: PCP Nurse Practitioner Family; Visit Provider Nurse Practitioner Family
DX: Z12.31 Encounter for screening mammogram for malignant neoplasm of breast (principal); R92.323 Mammographic fibroglandular density, bilateral breasts
CPT/HCPCS: 77063; 77067

== ENCOUNTER 2024-09-18 00:42 | Outpatient (CLI) | payer MEDICARE, SELFPAY ==
--- NOTE | 2024-09-18 | DI.US_ITS ---
Exam(s) MG MAMMO SCREEN CALL BACK UNI US BREAST RT COMPLETE EXAM: MG MAMMO SCREEN CALL BACK UNI-RIGHT AND COMPLETE RIGHT BREAST ULTRASOUND CLINICAL HISTORY: F/U ABNL MAMMO, R92.8,RT SMALL NODULAR DENSITY, ? LARGER. TECHNIQUE: Unilateral RIGHT BREAST spot mammographic images obtained with 3D tomosynthesisand utiliz ing computer aided detection (CAD). . Complete RIGHT breast Ultrasound was also performed, including all 4 quadrants, the retroareolar gloria on, and the ipsilateral axilla. COMPARISON: Prior mammograms were reviewed. This additional imaging was performed due to findings described on the recent screening mammogram of 09/16/2024. FINDINGS: DIAGNOSTIC MAMMOGRAM: Additional mammographic views performed todaydoes not dissipate the nodule. We proceeded with ultras ound COMPLETE RIGHT BREAST ULTRASOUND: Ultrasound performed today reveals 3 microcysts relatively centrally located. Largest of these is at the 9 o'clock position measuring 5 x 4 mm and probably corresponding to the finding on the mammogram . At the 8 o'clock position there are 2 smaller microcysts both measuring 3 mm. Most importantly, there are no solid lesions seen in all 4 quadrants. Scanning of the ipsilateral axilla reveals no significant adenopathy. IMPRESSION: 1. Benign findings. The small nodule the mammogram appears to be a benign microcyst, as described a luis felipe 2. Incidentally noted are 2 other smaller microcysts at the 8 o'clock position. Appropriate follow-up is to keep this patient on a yearly mammogram schedule. Recommend repeat ultra sound examination at the time for next yearly mammogram, with earlier imaging if a self detected gillian st change is noted. The patient was informed of these findings and recommendations by myself prior to leaving the departm ent today. BI-RADS Category 2 - Benign Findings Breast Density - Category B - There are scattered areas of fibroglandular density. Breast density Category C or D implies that the patient has dense breast tissue. Dense breast tissue can make it harder to find cancer on a mammogram. Dense breast tissue is also associated with an incr eased risk of breast cancer. This information about the result of the mammogram report was provided to the patient to raise their awareness. Use this report when you speak with the patient about their risks for breast cancer, which includes their family history. At that time, you may recommend additional screening tests (Ultrasoun d or MRI) as these tests may add significant information. A negative radiographic report should not delay biopsy if a dominant or clinically suspicious mass is present. Up to ten percent of cancers are not identified on mammography. A negative report may reinforce clinical impression. Adenosis and dense breasts may obscure an underlying neoplasm. False positive reports average 6 to 10%. Patient will receive a letter notifying them of these results.
== END 2024-09-18 01:02 ==
LOC: DI 00:42
PROVIDERS: PCP Nurse Practitioner Family; Visit Provider Nurse Practitioner Family
DX: N60.01 Solitary cyst of right breast (principal); Z12.31 Encounter for screening mammogram for malignant neoplasm of breast
CPT/HCPCS: 76642; 77063; 77067

== ENCOUNTER 2024-09-23 01:54 | Outpatient (CLI) | payer MEDICARE, SELFPAY ==
--- NOTE | 2024-09-23 10:21 | DI.CT_ITS ---
Exam(s) CT CHEST WO EXAM: CT CHEST WO CLINICAL HISTORY: F/U LUNG NODULE,R91.1. TECHNIQUE: Imaging protocol: Axial computed tomography images were obtained and coronal and sagittal reformatted images were created and reviewed. Lung Computer Aided Detection (CAD) was utilized. COMPARISON: CT CT ABDOMEN PELVIS W from 10/17/[address] ABDOMEN PELVIS WO from 01/31/2024 FINDINGS: Tracheobronchial tree: Patent where visualized. No bronchiectasis is present. Pulmonary parenchyma: There is again seen a 4 mm nodule in the lateral aspect of the left lower lobe (series 2, image 102). There is scarring or atelectasis in the left lower lobe. No focal consolidat ing infiltrates are present. There may be a few other smaller nodules present. Mediastinum and Lisy: No dominant adenopathy or fluid collection. The esophagus is unremarkable. Thyroid gland: Unremarkable. Pleura: No effusion or pneumothorax. Heart: The heart is not dilated. No coronary artery calcifications are seen. No pericardial effusion. Aorta: The ascending thoracic aorta measures 4.2 x 4.0 cm. Mild atherosclerotic calcification is pre sent. Upper abdomen: There is diffuse decreased attenuation of the liver consistent with fatty infiltratio n. The patient is status post cholecystectomy. There are simple cysts seen in the right kidney. No follow-up is recommended. Lymph nodes: Within normal limits. Soft tissues: Unremarkable. Bones:Within normal limits for the patient's age. IMPRESSION: 1. Stable 4 mm left lower lobe pulmonary nodule. Solid nodules smaller than 6 mm do not require routine follow-up in all patients with high clinical r isk; however, some nodules smaller than 6 mm with suspicious morphology, upper lobe location, or both may warrant follow-up at 12 months (grade 2A; weak recommendation, high-quality evidence). (Sylvester et al., 2017) Single solid noncalcified nodules. ???Solid nodules smaller than 6 mm (those 5 mm or smaller) do not require routine follow-up in patients at low risk (grade 1C; strong recommendation, low- or very-low- quality evidence). (Sylvester et al., 2017) 2. No acute pulmonary process. RADIATION DOSE DELIVERED: 151.24mGy.cm Total DLP 151.24mGy.cm Total DLP DATA REPOSITORY: All CT scans at this facility are submitted to the National Radiology Data Registry (NRDR) Dose Index Registry (DIR) with the [employer] ([employer]). RADIATION OPTIMIZATION: All CT scans at this facility use at least one of these dose optimization te chniques: automated exposure control; mA and/or kV adjustment per patient size (includes targeted exa ms where dose is matched to clinical indication); or iterative reconstruction.
== END 2024-09-23 02:14 ==
LOC: DI 01:54
PROVIDERS: PCP Nurse Practitioner Family; Visit Provider Nurse Practitioner Family
DX: R91.1 Solitary pulmonary nodule (principal)
CPT/HCPCS: 71250

== ENCOUNTER 2024-09-23 03:49 | Outpatient (CLI) | payer MEDICARE, SELFPAY ==
[2024-09-23 09:28] LABS: ALT 39 U/L (14-59); AST 26 U/L (15-37); Albumin 3.6 g/dL (3.4-5.0); Alkaline Phosphatase 74 U/L (46-116); Anion Gap 7.6 mmol/L (3-11); BUN 24 mg/dL (7-18); Bilirubin, Total 0.4 mg/dL (0.2-1.0); CO2 25.4 mmol/L (21.0-32.0); CREATININE 1.3 mg/dL (0.55-1.02); Calcium 9.4 mg/dL (8.5-10.1); Chloride 105 mmol/L (98-107); Estimated GFR 43.96 (mL/min/1.73m2); Glucose 107 mg/dL (74-106); Potassium 4.4 mmol/L (3.5-5.1); Sodium 138 mmol/L (136-145); TSH (W/Ref FT4) 6.67 uIU/mL (0.36-3.74); Total Protein 7.3 g/dL (6.4-8.2)
[2024-09-23 09:51] LABS: FREE T4 0.99 ng/dL (0.76-1.46)
[2024-09-23 21:15] LABS: Calculated LDL 104 mg/dL (<100); Cholesterol 189 mg/dL (<200); HDL Cholesterol 52 mg/dL (>or=50); Triglyceride 168 mg/dL (<150); Vitamin B12 771 pg/mL (193-986)
== END 2024-09-23 03:50 | disposition home or self-care (01) ==
LOC: LBO 03:49
PROVIDERS: PCP Nurse Practitioner Family; Visit Provider Nurse Practitioner Family
DX: Z13.6 Encounter for screening for cardiovascular disorders (principal); E03.9 Hypothyroidism, unspecified; D51.0 Vitamin B12 deficiency anemia due to intrinsic factor deficiency; N18.31 Chronic kidney disease, stage 3a
CPT/HCPCS: 36415; 80053; 80061; 82607; 84439; 84443

== ENCOUNTER 2024-11-19 18:51 | Outpatient (REF) | payer MEDICARE, SELFPAY ==
[2024-11-20 08:24] LABS: Calcium Urine 5.1 mg/dL (See Note); Timed Urine Volume 1300 mL
== END 2024-11-19 18:52 | disposition home or self-care (01) ==
LOC: LBN 18:51
PROVIDERS: PCP Nurse Practitioner Family; Visit Provider Internal Medicine Endocrinology, Diabetes & Metabolism
DX: M81.0 Age-related osteoporosis without current pathological fracture (principal)
CPT/HCPCS: 81050; 82340